=== PATIENT | male | born 1960 | race Caucasian/White ===

== ENCOUNTER → 2016-05-21 | Outpatient (CLI) | payer BC ==
[2016-05-21 17:50] LABS: Uric Acid 7.2 mg/dL (3.5-8.5)
[2016-05-21 17:53] LABS: Basophils % (A) 1 %; CH 27.8; CHCM 32.6; Eosinophils # (A) 0.1 k/uL (0-0.7); Eosinophils % (A) 2 %; HCT 43.4 % (39.0-53.0); HDW 2.67; HGB 14.3 gm/dL (13.0-17.5); Luc # (Auto) 0.18; Luc % (Auto) 4; Lymphocytes # (A) 1.6 k/uL (1.0-4.8); Lymphocytes % (A) 31 %; MCH 28.2 pg (25.0-35.0); MCV 85.5 fL (80.0-100.0); Mean Platelet Volume 7.6; Monocytes # (A) 0.3 k/uL (0-1.0); Monocytes % (A) 5 %; Neutrophils # (A) 2.9 k/uL (1.3-7.7); Neutrophils % (A) 58 %; RBC 5.08 m/uL (4.30-5.90); RDW 13.6 % (11.5-15.5); Rheumatoid Factor, Qnt <9 IU/mL (<12); WBC 5.1 k/uL (3.8-10.6); WBC (Perox) 5.28
[2016-05-21 19:30] LABS: Erythrocyte Sedimentation Rate 15 mm/hr (0-15)
== END | disposition home or self-care (01) ==
LOC: LABWHC1 16:44
PROVIDERS: ATTEND Podiatrist Foot & Ankle Surgery
DX: M10.9 Gout, unspecified (principal); B99.9 Unspecified infectious disease
CPT/HCPCS: 36415; 84550; 85025; 85652; 86431

== ENCOUNTER → 2016-07-16 | Outpatient (CLI) | payer BC ==
--- NOTE | 2016-07-16 16:54 | CT ---
EXAMINATION TYPE: CT chest w con DATE OF EXAM: 07/16/2016 4:45 PM COMPARISON: CT chest June 13, 2012 HISTORY: Hemoptysis. CT DLP: 860 mGycm. Automated Exposure Control for Dose Reduction was Utilized. TECHNIQUE: CT scan of the thorax is performed following with IV Contrast, patient injected with 100 mL of Omnipaque 300. FINDINGS: LUNGS: Minimal linear scarring anteriorly in the right middle lobe near diaphragm remains present. Th e lungs are otherwise grossly clear, there is no concerning parenchymal mass or nodule identified. There is no pleural effusion or pneumothorax seen. The tracheobronchial tree is patent. Previously v isualized right paraesophageal low dense lesion possible duplication cyst is not seen on current stud y. MEDIASTINUM: There are no new greater than 1 cm hilar or mediastinal lymph nodes. There are prominen t right hilar lymph nodes that are stable, for reference is 1.3 x 1.3 cm nodule on axial image 33. Chakraborty bcarinal lymph node is slightly more prominent measuring 2.0 x 0.8 cm on axial image 28 No pericardia l effusion is seen. OTHER: Small degree of asymmetric left-sided gynecomastia on axial image 23 is stable. Liver is hypod ense consistent with fatty infiltration relative to spleen. There is stable lipid rich 2 cm left adre nal adenoma Image 62. IMPRESSION: No new mass or adenopathy is seen . No significant finding is identified to account for p atcharles's symptoms of hemoptysis.
== END | disposition home or self-care (01) ==
LOC: RADCTMAIN 16:20
PROVIDERS: ATTEND Internal Medicine Hematology & Oncology
DX: R04.2 Hemoptysis (principal)
CPT/HCPCS: 71260; Q9967

== ENCOUNTER 2016-07-30 11:31 | Day surgery (SDC) | payer BC ==
[2016-07-29 14:28] VITALS: BMI 45.9
[~2016-07-30 11:31] MED LIST: ALBUTEROL NEB (CONC) 2.5 MG/0.5 ML INHALATION ONE; ATROPINE SULFATE 0.4 MG/ML 1 ML VIAL IM ONE; LACTATED RINGERS 1,000 ML IV ONE; LACTATED RINGERS 1,000 ML IV SCH; LIDOCAINE 2% (PF) 20 MG/ML 10ML INHALATION ONE; Pre Op ABX Message 1 EACH MISC MISCELLANE ONE
[2016-07-30 12:01] VITALS: TEMP 97.7
[2016-07-30] MEDS ORDERED: PROPOFOL 10 MG/ML 20 ML VIAL IV ONE (12:33)
[2016-07-30 13:24] VITALS: RESP 18
[2016-07-30] MEDS ORDERED: LIDOCAINE 2% (PF) 20 MG/ML 2 ML VIAL INHALATION ONE (13:35)
[2016-07-30 14:27] VITALS: BP 111/62; PULSE 65
[2016-07-30 18:25] LABS: RBC, Body Fluid 221 /uL
--- NOTE | 2016-07-31 07:37 | PCN ---
DATE OF PROCEDURE: PROCEDURE: Bronchoscopy, airway examination, therapeutic lavage, and BAL. PREOPERATIVE DIAGNOSIS: Hemoptysis. POSTOPERATIVE DIAGNOSES: 1. Hemoptysis. 2. Bronchitis. 3. Vocal cord candidiasis. There was informed consent. There was universal timeout. Quique Gillespie CRNA provided conscious sedation along with anesthesia. The procedure was done by myself and Dr. Reyes. The [employer] SERVICER provided unconscious sedation with general anesthesia. There was informed consent. The patient's procedure took place in Room #1. After the patient was adequately sedated and being fully monitored, the bronchoscope was inserted through the right nostril. It passed through the right nasopharynx into the oropharynx. The hypopharynx was identified. There was obvious yeast noted on the vocal cords, particularly the right cord. Otherwise, the hypopharyngeal structures, including anterior commissure, true cords, false cords, arytenoids, piriform sinuses, right and left vallecula and epiglottis all appear normal. After topicalization, the bronchoscope was pushed through the glottic opening into the trachea. Trachea appeared relatively normal. There were thick secretions noted in the mid to distal trachea, some of which were saddling the tracheal tigre. They were suctioned. The right and left mainstem were topicalized. The right upper lobe and its 3 segments, the right middle lobe and its 2 segments, the right lower lobe and its 5 segments, the left upper lobe proper and its 2 segments, the lingula and its 2 segments, and the left lower lobe and its 4 segments all had similar findings of diffuse bronchitis, with hyperemia and erythematous airways. There were thick secretions noted throughout. There was no active bleeding. There was no dominant mass. There is obvious moderate bronchitis. Next, the bronchoscope was wedged into the right middle lobe. BAL took place. The patient tolerated the procedure well. Additional secretions were removed, they were suctioned with saline. The patient tolerated the procedure well and the bronchoscope was withdrawn. The specimen will be sent to laboratory for analysis.
== END 2016-07-30 14:15 | disposition home or self-care (01) ==
LOC: ORWHC2ENDO 11:31
PROVIDERS: ATTEND Internal Medicine Critical Care Medicine
DX: R04.2 Hemoptysis (principal); J40 Bronchitis, not specified as acute or chronic; B37.89 Other sites of candidiasis; J44.9 Chronic obstructive pulmonary disease, unspecified; R49.0 Dysphonia; I10 Essential (primary) hypertension; Z79.891 Long term (current) use of opiate analgesic; Z79.51 Long term (current) use of inhaled steroids; Z79.52 Long term (current) use of systemic steroids; Z79.1 Long term (current) use of non-steroidal anti-inflammatories (NSAID); Z79.899 Other long term (current) drug therapy; Z87.891 Personal history of nicotine dependence; Z80.1 Family history of malignant neoplasm of trachea, bronchus and lung
CPT/HCPCS: 94640; 87798 ×4; 87496; 87498; 87529 ×2; 88108; 88305; 89050; 87252; 87502 ×2; 87070; 87205; 87116; 87102; 87206; 31624; J0461; J2001 ×2; J2704

== ENCOUNTER → 2016-08-05 | Outpatient (CLI) | payer BC ==
--- NOTE | 2016-08-05 15:17 | US ---
EXAMINATION TYPE: US venous doppler duplex LE BI DATE OF EXAM: 08/05/2016 1:31 PM COMPARISON: NONE CLINICAL HISTORY: I83.90 ASYMPTOMATIC VEINS, R60.0. Bilateral leg pain and edema. No hx of blood thi nners or DVT SIDE PERFORMED: Bilateral TECHNIQUE: The lower extremity deep venous system is examined utilizing real time linear array sonog duran with graded compression, doppler sonography and color-flow sonography. VESSELS IMAGED: External Iliac Vein (EIV) Common Femoral Vein Deep Femoral Vein Greater Saphenous Vein * Femoral Vein Popliteal Vein Small Saphenous Vein * Proximal Calf Veins (* superficial vessels) Grayscale, color doppler, spectral doppler imaging performed of the deep veins of the lower extremiti es. There is normal flow, compressibility, vascular waveforms bilaterally. Right Leg: Negative for DVT Left Leg: Negative for DVT IMPRESSION: No evidence for DVT at this time.
== END | disposition home or self-care (01) ==
LOC: RADUSWWP 12:44
PROVIDERS: ATTEND Family Medicine
DX: I83.90 Asymptomatic varicose veins of unspecified lower extremity (principal); R60.9 Edema, unspecified
CPT/HCPCS: 93970

== ENCOUNTER 2016-08-10 16:47 | Emergency (ER) | payer BC ==
[2016-08-10 17:10] VITALS: PULSE 108; TEMP 99
[2016-08-10] MEDS ORDERED: HYDROmorphone 1 MG/ML 1 ML SYRINGE IM STA (18:52)
--- NOTE | 2016-08-10 18:59 | ED ---
General Adult HPI - General Chief complaint: Recheck/Abnormal Lab/Rx Stated complaint: Withdrawls Time Seen by Provider: 08/10/16 18:36 Source: patient, RN notes reviewed Mode of arrival: wheelchair Limitations: no limitations - History of Present Illness Initial comments: Patient 55-year-old male significant past medical history for chronic back pain , who presents emergency room today with a chief complaint of increased back pain. He does admit that he is currently out of his morphine. He states that he presented been having increased pain so he took extra of his morphine will not given a prescription until this Wednesday. States prescription comes from his family doctor and he did talk to him today advised him come to the emergency room. Patient denies any bowel bladder incontinence retention. Denies any saddle anesthesia. He does admit to pain that radiates down his legs. He has also been seen by vascular surgeon. Denies any other complaints or symptoms at this time. He states symptoms are consistent with his chronic back pain that is more increased due to the fact that he is out of his medications. He states he has not been taking Tylenol or Motrin because he knows it will not help. He states he has been doing Xanax for his symptoms at this time which he does have prescription for. Patient denies any recent fever, chills, shortness of breath, chest pain, back pain, abdominal pain, nausea or vomiting, numbness or tingling , dysuria or hematuria, constipation or diarrhea, headaches or visual changes, or any other complaints. - Related Data Home Medications Medication Instructions Recorded Confirmed Furosemide [Lasix] 20 mg PO DAILY 07/29/16 07/30/16 Ibuprofen [Ibuprofen] 800 mg PO Q8H PRN 07/29/16 07/30/16 Morphine Sulfate [Arymo ER] 60 mg PO TID 07/29/16 07/30/16 Olmesartan/Amlodipin/Hcthiazid 1 each PO DAILY 07/29/16 07/30/16 [Tribenzor 40-10-25 mg Tablet] Previous Rx's Medication Instructions Recorded Baclofen 10 mg PO TID #20 tab 08/10/16 cloNIDine HCL [Catapres] 0.1 mg PO BID #6 tab 08/10/16 Allergies Allergy/AdvReac Type Severity Reaction Status Date / Time No Known Allergies Allergy Verified 08/10/16 17:11 Review of Systems ROS Statement: Those systems with pertinent positive or pertinent negative responses have been documented in the HPI. ROS Other: All systems not noted in ROS Statement are negative. Past Medical History Past Medical History: COPD, Hypertension Additional Past Medical History / Comment(s): BACK PAIN. EDEMA IN BLE. HEMOPTYSIS, SHORTNESS OF BREATH. History of Any Multi-Drug Resistant Organisms: None Reported Past Surgical History: Orthopedic Surgery Additional Past Surgical History / Comment(s): LT LEG INJURY REPAIR. COLONOSCOPY. Past Anesthesia/Blood Transfusion Reactions: No Reported Reaction Past Psychological History: No Psychological Hx Reported Smoking Status: Former smoker Past Alcohol Use History: None Reported Additional Past Alcohol Use History / Comment(s): SMOKED 30 YEARS, 2PPD, QUIT 2008 Past Drug Use History: None Reported Additional Drug Use History / Comment(s): DAILY USE - Past Family History Mother Family Medical History: Cancer Father Family Medical History: Cancer General Exam - General Exam Comments Initial Comments: General: The patient is awake and alert, in no distress, and does not appear acutely ill. Eye: Pupils are equal, round and reactive to light, extra-ocular movements are intact. No nystagmus. There is normal conjunctiva bilaterally. No signs of icterus. Ears, nose, mouth and throat: There are moist mucous membranes and no oral lesions. Neck: The neck is supple, there is no tenderness or JVD. Cardiovascular: There is a regular rate and rhythm. No murmur, rub or gallop is appreciated. Respiratory: Lungs are clear to auscultation, respirations are non-labored, breath sounds are equal. No wheezes, stridor, rales, or rhonchi. Musculoskeletal: Normal ROM. Strength 5/5. Sensation intact. Pulses equal bilaterally 2+. Neurological: A&O x 3. CN II-XII intact, There are no obvious motor or sensory deficits. Coordination appears grossly intact. Speech is normal. Skin: Skin is warm and dry and no rashes or lesions are noted. Psychiatric: Cooperative, appropriate mood & affect, normal judgment. Limitations: no limitations Course Vital Signs 08/10/16 17:07 Temperature 99.0 F Pulse Rate 108 H Respiratory 20 Rate Blood Pressure 127/79 O2 Sat by Pulse 98 Oximetry Medical Decision Making - Medical Decision Making Patient advised that we cannot fill his chronic pain medication of morphine here in emergency room. Offered patient a pain shot. Offered him medications for any withdrawals which we will give him a prescription for clonidine along with baclofen for his symptoms. Patient advised to follow-up with family doctor tomorrow or return here for any other concerns. He states understanding and is in agreement. Disposition Clinical Impression: Chronic back pain Disposition: HOME SELF-CARE Condition: Stable Instructions: Chronic Back Pain (ED) Additional Instructions: Please use medication as discussed. Please follow-up with family doctor in the next 2 days of symptoms have not improved. Please return to emergency room if the symptoms increase or worsen or for any other concerns. Prescriptions: Baclofen 10 mg PO TID #20 tab cloNIDine HCL [Catapres] 0.1 mg PO BID #6 tab Referrals: Harry Crooks DO [Primary Care Provider] - 1-2 days Time of Disposition: 18:57
[2016-08-10 19:12] VITALS: BP 148/73; RESP 16
== END 2016-08-10 19:23 | disposition home or self-care (01) ==
LOC: EC 16:47
DX: G89.29 Other chronic pain (principal); M54.9 Dorsalgia, unspecified; I10 Essential (primary) hypertension; Z79.891 Long term (current) use of opiate analgesic; Z79.899 Other long term (current) drug therapy; Z87.891 Personal history of nicotine dependence
CPT/HCPCS: 99283; 96372; J1170

== ENCOUNTER 2016-10-27 09:10 | Inpatient (IN) | payer BC ==
[2016-10-27] MEDS ORDERED: IPRATROPIUM-ALBUTEROL 3 ML NEB INHALATION STA (09:39)
[2016-10-27] MEDS ORDERED: SODIUM CHLORIDE 0.9% 1,000 ML IV STA (09:39)
--- NOTE | 2016-10-27 09:45 | ED ---
Chest Pain HPI - General Chief Complaint: Chest Pain Stated Complaint: Chest Pain Time Seen by Provider: 10/27/16 09:25 Source: patient, RN notes reviewed Mode of arrival: ambulatory Limitations: no limitations - History of Present Illness Initial Comments: This is a 56-year-old male with a benign history other than being a former smoker who quit in 2008 who complains the onset of shortness of breath 5 days ago and chest tightness is started today. He also some tightness in his legs. He has exertional dyspnea no fevers chills or sweats he does use a rescue inhaler but it did not help today. He has peripheral edema which seems to be getting worse in both legs worse when the left than the right. No cough or phlegm production. No history of heart disease that he knows of. He states she 's never been diagnosed with COPD asthma or emphysema but again he does use rescue inhalers. MD Complaint: chest pain, other - Related Data Home Medications Medication Instructions Recorded Confirmed Furosemide [Lasix] 20 mg PO DAILY 07/29/16 10/27/16 Olmesartan/Amlodipin/Hcthiazid 1 tab PO DAILY 07/29/16 10/27/16 [Tribenzor 40-10-25 mg Tablet] Gabapentin [Neurontin] 400 mg PO TID PRN 08/10/16 10/27/16 Aspirin EC [Ecotrin Low Dose] 81 mg PO DAILY 10/27/16 10/27/16 Budesonide-Formot 160-4.5 Mcg 2 puff INHALATION RT-DAILY 10/27/16 10/27/16 [Symbicort 160-4.5 Mcg Inhaler] Ipratropium/Albuterol Sulfate 1 puff INHALATION QID PRN 10/27/16 10/27/16 [Combivent Respimat Inhaler] Morphine Sulfate Ir [Msir] 15 mg PO TID PRN 10/27/16 10/27/16 Allergies Allergy/AdvReac Type Severity Reaction Status Date / Time tramadol AdvReac Chest Pain Verified 10/27/16 09:37 Review of Systems ROS Statement: Those systems with pertinent positive or pertinent negative responses have been documented in the HPI. ROS Other: All systems not noted in ROS Statement are negative. EKG Findings - EKG Results: EKG: interpreted by TIM, sinus rhythm (Sinus tachycardia with a rate of 110 MT interval 150 to QRS 84 QT since QTC of 366/495 the posterior fascicular block nonspecific ST configuration.) Past Medical History Past Medical History: Chest Pain / Angina, COPD, Hypertension Additional Past Medical History / Comment(s): BACK PAIN. EDEMA IN BLE. HEMOPTYSIS, SHORTNESS OF BREATH. History of Any Multi-Drug Resistant Organisms: None Reported Past Surgical History: Adenoidectomy, Orthopedic Surgery, Tonsillectomy Additional Past Surgical History / Comment(s): LT LEG INJURY REPAIR. COLONOSCOPY. Past Anesthesia/Blood Transfusion Reactions: No Reported Reaction Past Psychological History: Anxiety, Depression Smoking Status: Former smoker Past Alcohol Use History: Rare Past Drug Use History: None Reported - Past Family History Mother Family Medical History: Cancer Father Family Medical History: Cancer General Exam - General Exam Comments Initial Comments: This is a well-developed well-nourished awake alert oriented 3 male Limitations: no limitations General appearance: alert, anxious Head exam: Present: atraumatic, normocephalic, normal inspection Eye exam: Present: normal appearance, PERRL, EOMI. Absent: scleral icterus, conjunctival injection, periorbital swelling ENT exam: Present: mucous membranes dry Neck exam: Present: normal inspection. Absent: tenderness, meningismus, lymphadenopathy Respiratory exam: Present: wheezes, decreased breath sounds Cardiovascular Exam: Present: normal rhythm, tachycardia GI/Abdominal exam: Present: soft, normal bowel sounds. Absent: distended, tenderness, guarding, rebound, rigid Extremities exam: Present: normal capillary refill, pedal edema (Pila edema to the knees) Back exam: Present: normal inspection Neurological exam: Present: alert, oriented X3, CN II-XII intact Psychiatric exam: Present: normal affect, normal mood Skin exam: Present: warm, dry, intact, normal color. Absent: rash Course Vital Signs 10/27/16 10/27/16 10/27/16 09:13 09:49 10:06 Temperature 101.2 F H Pulse Rate 117 H 107 H 107 H Respiratory 18 16 14 Rate Blood Pressure 123/84 O2 Sat by Pulse 93 L Oximetry 10/27/16 10/27/16 10:16 12:40 Temperature Pulse Rate 110 H 107 H Respiratory 18 24 Rate Blood Pressure 109/66 115/64 O2 Sat by Pulse 93 L 94 L Oximetry - Reevaluation(s) Reevaluation #1: 08/29/17 13:21 I did discuss the findings with the patient and family and several occasions. Patient CAT scan a saddle pulmonary embolism was noted. Reevaluation #2: 10/27/16 13:21 I did discuss the case with Dr. Zepeda. He did come to the emergency department see the patient did discuss case with Dr. Kee who did come to the emergency department to see the patient. At this time is felt the patient is not a candidate for TPA and will be admitted to ICU on high-dose heparin. Critical Care Time Critical Care Time: Yes Critical Care Time: 45 minutes of critical care time which includes initial presentation with history physical labs x-rays reevaluation the patient on several occasions discussion with physicians including radiology Dr Mariscal, Dr. Zepeda in Dr. Kee. Disposition Clinical Impression: Pulmonary embolism on left, Pulmonary embolism on right, COPD (chronic obstructive pulmonary disease), Febrile illness, acute, Elevated troponin Disposition: ADMITTED IP TO THIS [facility] Condition: Serious Referrals: Harry Crooks DO [Primary Care Provider] - 1-2 days
[2016-10-27 10:28] LABS: Basophils # (A) 0.1 k/uL (0-0.2); Basophils % (A) 1 %; CH 30.1; CHCM 34.2; Eosinophils # (A) 0.1 k/uL (0-0.7); Eosinophils % (A) 1 %; HCT 46.4 % (39.0-53.0); HDW 2.87; HGB 15.2 gm/dL (13.0-17.5); Luc # (Auto) 0.39; Luc % (Auto) 3; Lymphocytes # (A) 2.9 k/uL (1.0-4.8); Lymphocytes % (A) 24 %; MCH 28.9 pg (25.0-35.0); MCHC 32.7 g/dL (31.0-37.0); MCV 88.4 fL (80.0-100.0); Mean Platelet Volume 8.9; Monocytes # (A) 0.5 k/uL (0-1.0); Monocytes % (A) 4 %; Neutrophils # (A) 8.5 k/uL (1.3-7.7); Neutrophils % (A) 68 %; RBC 5.25 m/uL (4.30-5.90); RDW 15.8 % (11.5-15.5); WBC 12.4 k/uL (3.8-10.6); WBC (Perox) 11.72
--- NOTE | 2016-10-27 10:35 | XR ---
EXAMINATION TYPE: XR chest 2V DATE OF EXAM: 10/27/2016 HISTORY: difficulty breathing. REFERENCE: Previous study dated 05/21/2012. FINDINGS: There is a mild dextroscoliosis. 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 The lungs are clear. Pleural space are clear. Heart size is within normal limits. IMPRESSION: NO ACUTE INTRATHORACIC ABNORMALITY.
[2016-10-27 10:38] LABS: ALT 28 U/L (21-72); AST 26 U/L (17-59); Alkaline Phosphatase 97 U/L (38-126); Anion Gap 10 mmol/L; Blood Urea Nitrogen 24 mg/dL (9-20); Calcium 9.2 mg/dL (8.4-10.2); Carbon Dioxide 23 mmol/L (22-30); Chloride 109 mmol/L (98-107); Glucose 107 mg/dL (74-99); Magnesium 2.2 mg/dL (1.6-2.3); Non-African American GFR(MDRD) 53 (>60 ml/min/1.73 sqM); Potassium 4.5 mmol/L (3.5-5.1); Sodium 142 mmol/L (137-145); Total Bilirubin 0.7 mg/dL (0.2-1.3); Total Protein 7.1 g/dL (6.3-8.2)
[2016-10-27 10:45] LABS: Partial Thromboplastin Time 23.5 sec (22.0-30.0); Prothrombin Time 10.5 sec (9.0-12.0)
[2016-10-27] MEDS ORDERED: RX INFO: IV CONTRAST WAS GIVEN 1 EACH MISC MISCELLANE PRN (10:51)
[2016-10-27 11:08] LABS: Creatine Kinase MB 1.2 ng/mL (0.0-2.4)
[2016-10-27 11:11] LABS: Troponin I 0.149 ng/mL (0.000-0.034)
[2016-10-27] MEDS ORDERED: HEPARIN SODIUM,PORCINE 5,000 UNIT/ML 1 ML VIAL IV STA (11:34)
--- NOTE | 2016-10-27 11:48 | CT ---
EXAMINATION TYPE: CT angio chest DATE OF EXAM: 10/27/2016 COMPARISON: 07/16/2016 HISTORY: chest pain, sob, bilateral lower limb edema, hx of htn and asthma. CT DLP: 768.5 mGycm. Automated Exposure Control for Dose Reduction was Utilized. CONTRAST: CTA scan of the thorax is performed with IV Contrast, patient injected with 90 mL of Visipaque 320, p ulmonary embolism protocol. MIP Images are created on CT scanner and reviewed. FINDINGS: LUNGS: Scattered areas of subsegmental atelectasis are seen and patchy opacities that may represent e jayme pulmonary infarcts although no focal consolidation is present. There is no pleural effusion or pneumothorax seen. The tracheobronchial tree is patent. MEDIASTINUM: Large saddle pulmonary embolus is seen bridging the right and left main pulmonary arteri es, nonocclusive at these levels, however nearly occlusive segmental and subsegmental emboli with mul tiple occlusive segmental emboli are seen to all lobes of the right and left lung. There is associate d pulmonary arterial enlargement measuring up to 3.5 cm as well as bowing of the interventricular sep tavia to the left, indicative of right heart strain. Reflux of contrast is seen into the inferior vena cava but not into the hepatic veins. Mild adenopathy is seen within the mediastinum with subcarinal lymph node measuring 1.2 cm and lymph node within the prevascular space measuring 0.9 cm. Adenopathy within the right hilum is also seen me asuring 1.2 cm in short axis, likely reactive. OTHER: Low-density adrenal gland nodule on the left measures approximately 1.9 cm and relates to ei er a myelolipoma or lipid rich adenoma. Sclerotic lesion is present within the left glenoid, unchange d from the prior and of undetermined etiology. Another sclerotic focus is seen within the second post erior right rib, also unchanged from the prior of undetermined etiology. Degenerative changes are mian reciated of the thoracic spine. Findings communicated to the ER physician Dr. Mcdonald by Dr. Mariscal at 1132 on 10/27/2016. IMPRESSION: 1. Large saddle embolus, nonocclusive centrally, but occlusive within many subsegmental pulmonary emb lynda. Emboli extend bilaterally into each segmental artery and many subsegmental arteries to each lobe . There is evidence of secondary right heart strain. 2. Sclerotic foci within the right second rib and left glenoid, of undetermined etiology and incomple tely characterized. 3. Mediastinal adenopathy, likely reactive. 4. Scattered areas of groundglass opacity which may represent atelectasis and/or early pulmonary infa rcts. 5. Benign left adrenal gland lesion either representing a lipid rich adenoma or myelolipoma.
[2016-10-27] MEDS: HEPARIN SODIUM,PORCINE/D5W PMX 25,000 UNIT in DEXTROSE/WATER 1 500ML.BAG IV SCH ×2 (12:36→21:55)
--- NOTE | 2016-10-27 13:00 | P.CNPUL ---
History of Present Illness Consult date: 10/27/16 Reason for consult: pulmonary embolism History of present illness: A very pleasant 56-year-old obese male patient with known history of chronic degenerative arthritis involving the back and large joints/hips/knees was been bleeding essentially incidentally lifestyle. The patient also has a positive family history for pulmonary embolism as his father was diagnosed having PE and he also had an underlying multiple myeloma. The patient was in a good state of health in approximately 5 days ago when he acutely started getting short of breath and he progressively got worse to the point where he was getting short of breath with limited amount of activity and sometimes even at rest. No hemoptysis. No pleurisy. No chest pain.No calf pain. He had swelling in lower extremities bilaterally. He was concerned and for that reason he came into the hospital with a CT angios the chest was done and it showed bilateral pulmonary embolism And the CAT scan showed a saddle embolism nonocclusive centrally but there was many subsegmental pulmonary emboli bilaterally and segmental emboli each lobe of the lung. There was evidence of any active mediastinal lymphadenopathy. Scattered areas of groundglass opacity within the lung/atelectasis/early infarct. There was a right ventricular strain pattern on the CT angios the chest and for that reason a stat echocardiogram was done that showed a preserved LV function with a PA pressures in the mid 40s and dilation of the right ventricle. The patient was started on IV heparin. He remains hemodynamically stable. In fact his systolic blood pressures in the 140s. He is slightly tachycardic and he is in sinus tachycardia with a heart rate of 105. He is on 42 of oxygen nasal cannula and his pulse is around 95%. Denies having any recent surgery. No orthopedic surgery. No trauma. No malignancy. No personal history of DVT or pulmonary embolism. No change in mental status. No syncope. He has clinical features of obstructive sleep apnea although this has not been diagnosed officially. Review of Systems Constitutional: Reports fatigue Eyes: right decreased vision, denies blurred vision, denies bulging eye Ears: right: tinnitus, deny: decreased hearing, ear discharge, earache Ears, nose, mouth and throat: Denies headache, Denies sore throat Cardiovascular: Reports decreased exercise tolerance, Reports dyspnea on exertion, Reports leg edema, Reports rapid heart beat, Reports shortness of breath Respiratory: Reports dyspnea, Reports snoring Gastrointestinal: Denies abdominal pain, Denies diarrhea, Denies nausea, Denies vomiting Genitourinary: Reports as per HPI Musculoskeletal: Reports gait dysfunction, Reports low back pain, Denies myalgias Musculoskeletal: bilateral: ankle swelling, absent: ankle pain, ankle stiffness Integumentary: Denies pruritus, Denies rash Neurological: Denies numbness, Denies weakness Psychiatric: Denies anxiety, Denies depression Endocrine: Denies fatigue, Denies weight change Past Medical History Past Medical History: Chest Pain / Angina, COPD, Hypertension Additional Past Medical History / Comment(s): Obesity, hypertension, lower extremities edema, bronchial asthma/COPD, chronic back pain, degenerative arthritis involving the joints and spine History of Any Multi-Drug Resistant Organisms: None Reported Past Surgical History: Adenoidectomy, Orthopedic Surgery, Tonsillectomy Additional Past Surgical History / Comment(s): LT LEG INJURY REPAIR. COLONOSCOPY. Past Anesthesia/Blood Transfusion Reactions: No Reported Reaction Past Psychological History: Anxiety, Depression Smoking Status: Former smoker Past Alcohol Use History: Rare Past Drug Use History: None Reported - Past Family History Mother Family Medical History: Cancer Father Family Medical History: Cancer Medications and Allergies Home Medications Medication Instructions Recorded Confirmed Type Furosemide [Lasix] 20 mg PO DAILY 07/29/16 10/27/16 History Olmesartan/Amlodipin/Hcthiazid 1 tab PO DAILY 07/29/16 10/27/16 History [Tribenzor 40-10-25 mg Tablet] Gabapentin [Neurontin] 400 mg PO TID PRN 08/10/16 10/27/16 History Aspirin EC [Ecotrin Low Dose] 81 mg PO DAILY 10/27/16 10/27/16 History Budesonide-Formot 160-4.5 Mcg 2 puff INHALATION RT-DAILY 10/27/16 10/27/16 History [Symbicort 160-4.5 Mcg Inhaler] Ipratropium/Albuterol Sulfate 1 puff INHALATION QID PRN 10/27/16 10/27/16 History [Combivent Respimat Inhaler] Morphine Sulfate Ir [Msir] 15 mg PO TID PRN 10/27/16 10/27/16 History Allergies Allergy/AdvReac Type Severity Reaction Status Date / Time tramadol AdvReac Chest Pain Verified 10/27/16 09:37 Physical Exam Vitals: Vital Signs Temp Pulse Resp BP Pulse Ox 10/27/16 12:40 107 H 24 115/64 94 L 10/27/16 10:16 110 H 18 109/66 93 L 10/27/16 10:06 107 H 14 10/27/16 09:49 107 H 16 10/27/16 09:13 101.2 F H 117 H 18 123/84 93 L Intake and Output 10/26/16 10/27/16 10/27/16 22:59 06:59 14:59 Other: Weight 136.078 kg Patient Weight 10/28/16 06:59 Weight 136.078 kg Obese, comfortable likely distress.Head exam was generally normal. There was no scleral icterus or corneal arcus. Mucous membranes were moist. Neck is short and supple and the patient has significant crowding of the posterior oropharynx with a Mallampati class IV. No goiter or neck masses. Lungs sounds are diminished in lung bases otherwise clear. Breath sounds are equal and symmetrical bilaterally.Cardiac exam revealed the PMI to be normally situated and sized. The rhythm was regular and no extrasystoles were noted during several minutes of auscultation. The first and second heart sounds were normal and physiologic splitting of the second heart sound was noted. There were no murmurs, rubs, clicks, or gallops. Abdomen soft nontender. No direct tenderness rebound tensile guarding. Extremities reveal +1 edema and there is no cyanosis or clubbing. No calf tenderness. No open wounds or sores. Neurologically, the patient is awake and alert. Results - Laboratory Findings CBC and BMP: 10/27/16 09:30 10/27/16 09:30 PT/INR, D-dimer PT 10.5 sec (9.0-12.0) 10/27/16 09:30 INR 1.0 (<1.2) 10/27/16 09:30 D-Dimer 7.50 mg/L FEU (<0.60) H 10/27/16 09:30 Abnormal lab findings: Abnormal Labs 10/27/16 10/27/16 10/27/16 09:30 09:30 09:30 WBC 12.4 H RDW 15.8 H Neutrophils # 8.5 H D-Dimer Chloride 109 H BUN 24 H Creatinine 1.37 H Glucose 107 H Troponin I 0.149 H* 10/27/16 09:30 WBC RDW Neutrophils # D-Dimer 7.50 H Chloride BUN Creatinine Glucose Troponin I - Diagnostic Findings CT scan - chest: image reviewed Assessment and Plan Plan: Assessment 1 acute bilateral pulmonary embolism. The patient has unprovoked pulmonary embolism and his main risk factor is positive family history and sedentary lifestyle. The patient had a CT angios the chest that showed segmental and subsegmental pulmonary artery occlusions bilaterally and there was a nonocclusive saddle embolus. There is evidence of moderate degree of pulmonary hypertension. PA pressures based on echocardiogram the mid 40s. Nevertheless, the patient is on oxygen at 4 L and is oxygenating well for the time being. No significant tachycardia. No hemodynamic instability and his blood pressure is well maintained. 2 obesity 3 sedentary lifestyle 4 positive family history of pulmonary embolism 5 hypertension 6 COPD/bronchial asthma 7 degenerative arthritis with chronic back pain and difficulty with mobility and gait 8 renal insufficiency, possibly acute kidney injury with a creatinine of 1.3, watch for contrast nephropathy Plan I do not see the need for thrombolytics whether the systemic or local/ intracatheter knowing that the patient is hemodynamic is stable and the patient is able to handle the pulmonary embolism without any major hemodynamic instability. He is actually taking well at 4 L. Blood pressure is well maintained. We'll obtain Doppler of the lower extremities. We'll proceed with IV heparin and within next 2448 hrs. the patient will be transitioned to oral antibiotic coagulation. He will need long-term if not lifelong anticoagulation based on the above-mentioned events. Meanwhile, we'll monitor renal function watch for any contrast nephropathy. The patient will to the intensive care unit for further monitoring. Further recommendations are to follow based on his progress. Discussed the case with the family. Discussed the case with the . The echocardiogram was reviewed with the aircraft structural fitter at the bedside.
[2016-10-27] MEDS ORDERED: ACETAMINOPHEN TAB 325 MG TAB PO PRN (13:24)
[2016-10-27] MEDS ORDERED: NALOXONE 0.4 MG/ML 1 ML VIAL IV PRN (13:24)
[2016-10-27] MEDS ORDERED: MORPHINE SULFATE 4 MG/ML SYRINGE IVP STA (14:06)
--- NOTE | 2016-10-27 14:21 | P.HPIM ---
History of Present Illness H&P Date: 10/27/16 Chief Complaint: bilateral saddle pulmonary embolism This is a 56-year-old male one of Dr. 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 Crooks's office because of increased chest pain associated with increased shortness breath walking a few steps on patient had an EKG Dr. Crooks's office that showed right ventricular strain pattern was sent to the ER for evaluation his d-dimer came back elevated he ended up going for computed tomography scan of the chest with contrast that was positive for bilateral saddle pulmonary emboli, he was seen in consultation by Dr. Kee from critical care and pulmonary medicine, he had an Echocardiogram and EKG at the bedside there is significant right ventricular strain pattern on EKG however the echocardiogram was still pending at the time of dictation, patient stated that he was in his usual state of health about last when he was getting out and walking around loaded and he suddenly developed to have a severe chest pain associated with pleurisy not able to walk a few steps he did not do anything about it he ended up going back home he stated lipase without any relief patient apparently was seen recently by Dr. Thompson for his COPD/asthma he was placed on Symbicort 160/4.5 g 2 puffs inhalation twice every day along with Combivent Respimat 2 puffs inhal QID and patient when he did use it recently he felt a lot worse he ended up coming to the hospital as I stated above and he was seen in the ER and he was admitted to the intensive care unit for evaluation and treatment. Of notice patient was seen by hematology oncology in June 2016 and he ended up going for a computed tomography scan of the chest that was negative for acute of normalities because of hemoptysis that he developed. Review of Systems Constitutional: Reports chronic pain, Reports weight gain, Denies anorexia, Denies chronic headaches, Denies fever, Denies malaise, Denies night sweats, Denies weakness, Denies weight loss Eyes: denies blurred vision, denies bulging eye, denies decreased vision Ears: deny: decreased hearing Ears, nose, mouth and throat: Denies dysphagia, Denies neck lump, Denies swelling in throat, Denies sore throat Cardiovascular: Reports chest pain, Reports decreased exercise tolerance, Reports dyspnea on exertion, Reports high blood pressure, Reports lightheadedness, Reports rapid heart beat, Reports shortness of breath, Denies irregular heart beat, Denies palpitations, Denies paroxysmal nocturnal dyspnea, Denies phlebitis, Denies syncope Respiratory: Reports dyspnea, Reports pain on inspiration, Reports sleep apnea, Denies congestion, Denies cough, Denies cough with sputum, Denies pain, Denies snoring, Denies wheezing Gastrointestinal: Reports constipation, Denies abdominal pain, Denies bloating, Denies BRBPR, Denies dyspepsia, Denies hematemesis, Denies melena, Denies nausea , Denies vomiting Genitourinary: Reports nocturia, Denies dysuria Musculoskeletal: Reports gait dysfunction, Reports low back pain, Reports shooting leg pain, Denies myalgias Musculoskeletal: left: foot stiffness, foot swelling, bilateral: ankle swelling , absent: ankle pain, ankle stiffness, elbow pain, elbow stiffness, elbow swelling, foot pain, hand pain, hand stiffness, hand swelling, hip pain, hip stiffness, hip swelling, knee pain, knee stiffness, knee swelling, shoulder pain , shoulder stiffness, shoulder swelling, wrist pain, wrist stiffness, wrist swelling Integumentary: Denies pruritus, Denies rash Neurological: Denies numbness, Denies weakness Psychiatric: Denies anxiety, Denies depression Endocrine: Denies fatigue, Denies weight change Past Medical History Past Medical History: Chest Pain / Angina, COPD, Hyperlipidemia, Hypertension, Musculoskeletal Disorder, Osteoarthritis (OA), Sleep Apnea/CPAP/BIPAP Additional Past Medical History / Comment(s): Hypertension and hypertensive cardiovascular disease, hyperlipidemia, obesity with obstructive sleep apnea Ho chronic pain syndrome, degenerative disc disease of the lumbar spine, elevated liver function tests, COPD, asthma, hemoptysis back in June 2016, bilateral lower extremity edema especially the left lower extremity. History of Any Multi-Drug Resistant Organisms: None Reported Past Surgical History: Adenoidectomy, Orthopedic Surgery, Tonsillectomy Additional Past Surgical History / Comment(s): LT LEG INJURY REPAIR. COLONOSCOPY. 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, he drinks occasionally.) Past Alcohol Use History: Rare Past Drug Use History: None Reported - Past Family History Mother Family Medical History: Cancer (mother at age of 75 from lung cancer.) Father Family Medical History: Cancer (father at age of 82 from multiple myeloma, CAD, and obstructive sleep apnea .), Coronary Artery Disease (CAD), Sleep Apnea/ CPAP/BIPAP Brother(s) Family Medical History: Pulmonary Embolus (patient had 2 brothers one at and the other one was diagnosed with pulmonary embolism) Sister(s) Family Medical History: No Reported History (patient has 3 sisters no major medical problems.) Daughter(s) Family Medical History: No Reported History (patient has 2 daughters no major medical problems.) Son(s) Family Medical History: No Reported History (patient has one son no major medical problems.) Medications and Allergies Home Medications Medication Instructions Recorded Confirmed Type Furosemide [Lasix] 20 mg PO DAILY 07/29/16 10/27/16 History Olmesartan/Amlodipin/Hcthiazid 1 tab PO DAILY 07/29/16 10/27/16 History [Tribenzor 40-10-25 mg Tablet] Gabapentin [Neurontin] 400 mg PO TID PRN 08/10/16 10/27/16 History Aspirin EC [Ecotrin Low Dose] 81 mg PO DAILY 10/27/16 10/27/16 History Budesonide-Formot 160-4.5 Mcg 2 puff INHALATION RT-DAILY 10/27/16 10/27/16 History [Symbicort 160-4.5 Mcg Inhaler] Ipratropium/Albuterol Sulfate 1 puff INHALATION QID PRN 10/27/16 10/27/16 History [Combivent Respimat Inhaler] Morphine Sulfate Ir [Msir] 15 mg PO TID PRN 10/27/16 10/27/16 History Allergies Allergy/AdvReac Type Severity Reaction Status Date / Time tramadol AdvReac Chest Pain Verified 10/27/16 09:37 Physical Exam Vitals: Vital Signs Temp Pulse Resp BP Pulse Ox 10/27/16 12:40 107 H 24 115/64 94 L 10/27/16 10:16 110 H 18 109/66 93 L 10/27/16 10:06 107 H 14 10/27/16 09:49 107 H 16 10/27/16 09:13 101.2 F H 117 H 18 123/84 93 L Intake and Output 10/26/16 10/27/16 10/27/16 22:59 06:59 14:59 Other: Weight 136.078 kg Patient Weight 10/28/16 06:59 Weight 136.078 kg - Constitutional General appearance: mild distress, morbidly obese - EENT Eyes: anicteric sclerae, EOMI, PERRLA, no ptosis, no scleral icterus, normal appearance ENT: NA/AT, normal oropharynx, no thrush, no tonsillar exudates Ears: bilateral: normal - Neck Neck: no lymphadenopathy, normal ROM, no rigidity, no stridor, no thyromegaly Carotids: bilateral: upstroke normal Thyroid: bilateral: normal size - Respiratory Respiratory: bilateral: diminished, negative: dullness, rales, rhonchi, wheezing - Cardiovascular Rhythm: regular Heart sounds: normal: S1, S2 Abnormal Heart Sounds: systolic murmur, no rub, S3 Gallop, no S4 Gallop, no click - Gastrointestinal General gastrointestinal: normal bowel sounds, soft, no splenomegaly, no tenderness, no umbilical hernia, no ventral hernia - Integumentary Integumentary: normal, normal turgor - Neurologic Neurologic: CNII-XII intact - Musculoskeletal Musculoskeletal: generalized weakness, strength equal bilaterally - Psychiatric Psychiatric: A&O x's 3, appropriate affect, intact judgment & insight Results CBC & Chem 7: 10/28/16 04:12 10/28/16 04:12 Labs: Abnormal Lab Results - Last 24 Hours (Table) 10/27/16 10/27/16 10/27/16 Range/Units 09:30 09:30 09:30 WBC 12.4 H (3.8-10.6) k/uL RDW 15.8 H (11.5-15.5) % Neutrophils # 8.5 H (1.3-7.7) k/uL D-Dimer (<0.60) mg/L FEU Chloride 109 H (98-107) mmol/L BUN 24 H (9-20) mg/dL Creatinine 1.37 H (0.66-1.25) mg/dL Glucose 107 H (74-99) mg/dL Troponin I 0.149 H* (0.000-0.034) ng/mL 10/27/16 Range/Units 09:30 WBC (3.8-10.6) k/uL RDW (11.5-15.5) % Neutrophils # (1.3-7.7) k/uL D-Dimer 7.50 H (<0.60) mg/L FEU Chloride (98-107) mmol/L BUN (9-20) mg/dL Creatinine (0.66-1.25) mg/dL Glucose (74-99) mg/dL Troponin I (0.000-0.034) ng/mL Thrombosis Risk Factor Assmnt - DVT/VTE Prophylaxis DVT/VTE Prophylaxis: Pharmacologic Prophylaxis ordered, Mechanical Prophylaxis ordered Assessment and Plan Plan: Assessment and plan: 1. Bilateral saddle pulmonary emboli. Admit patient to the intensive care unit , 12-lead EKG showed right ventricular strain pattern, Echocardiogram was done at the bedside, patient was seen in consultation by Dr. Kee from pulmonary and critical care medicine it was felt that the patient did not need to be on t- PA at this point in time since he was hemodynamically stable. patient was started on heparin drip per protocol, we will admit the patient to intensive care unit, we will check venous Doppler of both lower extremities as the patient does appear to have significant swelling in the left lower extremity. 2. Hypertension and hypertensive cardiovascular disease. Continue patient on [place] Enzor/10/25 mg orally once every day. 3. Chronic pain syndrome. Continue patient on MSIR 15 mg orally 3 times every day. 4. 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 Continue patient on gabapentin 400 mg orally 3 times every day. 5. Obesity with obstructive sleep apnea and obesity hypoventilation syndrome. Patient will need to go for a polysomnogram as an outpatient. 6. COPD/asthma. Start the patient on Symbicort 160/4.5 g 2 puff inhalation twice every day, continue DuoNeb 3 mL nebulization 4 times every day, continue oxygen support at 4 L nasal cannula. 7. Elevated liver function test. Thought to be due to fatty filtration of the liver and possible narcotics. 8. Acute kidney injury and top of possible chronic disease stage II. IV fluid resuscitation, monitor the patient CMP, magnesium, phosphorus the next 24 hours , monitor for contrast nephropathy. 9. DVT prophylaxis. Currently on heparin drip. 10. GI prophylaxis. Start the patient on Protonix 40 mg IV push every 24 hours. 11. Patient is full code. 12. Admit to inpatient. Estimate a length of stay 2 midnights.
[2016-10-27] MEDS: SODIUM CHLORIDE 0.9% 1,000 ML IV SCH (14:40)
--- NOTE | 2016-10-27 15:31 | US ---
EXAMINATION TYPE: US venous doppler duplex LE DATE OF EXAM: 10/27/2016 3:18 PM COMPARISON: Previous study dated 08/05/2016. CLINICAL HISTORY: DVT/PE. PE, started Heparin, no hx of DVT or Blood clots. Patient states discomfor t behind left knee. No redness or swelling noted. SIDE PERFORMED: Bilateral TECHNIQUE: The lower extremity deep venous system is examined utilizing real time linear array sonog duran with graded compression, doppler sonography and color-flow sonography. VESSELS IMAGED: External Iliac Vein (EIV) Common Femoral Vein Deep Femoral Vein Greater Saphenous Vein * Femoral Vein Popliteal Vein Small Saphenous Vein * Proximal Calf Veins (* superficial vessels) Right Leg: Appears negative for DVT Left Leg: Appears POSITIVE for DVT in Popliteal vein. Small amount of vascular flow noted in proxim al Popliteal vein. Proximal calf veins not well visualized. No popliteal fossa lesion is identified. IMPRESSION: THIS EXAMINATION IS POSITIVE FOR DVT IN THE LEFT POPLITEAL VEIN.
[2016-10-27 15:37] LABS: Glucose,Whole Blood 120 mg/dL (75-99)
[2016-10-27] MEDS: IPRATROPIUM-ALBUTEROL 3 ML NEB INHALATION SCH ×2 (15:39→20:24)
[2016-10-27] MEDS: MORPHINE SULFATE IR 15 MG TABLET PO PRN (18:41)
[2016-10-27] MEDS: SYMBICORT 160-4.5 MCG INHALER INHALATION SCH (20:25)
[2016-10-27] MEDS: GABAPENTIN 400 MG CAP PO PRN (20:37)
[2016-10-27] MEDS ORDERED: IPRATROPIUM-ALBUTEROL 3 ML NEB INHALATION PRN (20:53)
[2016-10-28] MEDS: SODIUM CHLORIDE 0.9% 1,000 ML IV SCH ×3 (00:04→17:47)
[2016-10-28 04:52] LABS: Basophils % (A) 0 %; CH 29.4; CHCM 32.8; Eosinophils # (A) 0.1 k/uL (0-0.7); Eosinophils % (A) 1 %; HCT 44.5 % (39.0-53.0); HDW 2.81; HGB 13.9 gm/dL (13.0-17.5); Luc # (Auto) 0.27; Luc % (Auto) 3; Lymphocytes # (A) 2.4 k/uL (1.0-4.8); Lymphocytes % (A) 24 %; MCH 28.2 pg (25.0-35.0); MCHC 31.2 g/dL (31.0-37.0); MCV 90.3 fL (80.0-100.0); Mean Platelet Volume 9.2; Monocytes # (A) 0.4 k/uL (0-1.0); Monocytes % (A) 4 %; Neutrophils # (A) 6.7 k/uL (1.3-7.7); Neutrophils % (A) 68 %; RBC 4.93 m/uL (4.30-5.90); RDW 15.6 % (11.5-15.5); WBC 9.9 k/uL (3.8-10.6); WBC (Perox) 9.61
[2016-10-28 05:23] LABS: INR 1.1 (<1.2); Prothrombin Time 11.3 sec (9.0-12.0)
[2016-10-28 05:38] LABS: ALT 28 U/L (21-72); AST 25 U/L (17-59); Alkaline Phosphatase 100 U/L (38-126); Anion Gap 9 mmol/L; Blood Urea Nitrogen 19 mg/dL (9-20); Calcium 8.9 mg/dL (8.4-10.2); Carbon Dioxide 23 mmol/L (22-30); Chloride 107 mmol/L (98-107); Glucose 120 mg/dL (74-99); Magnesium 2.3 mg/dL (1.6-2.3); Non-African American GFR(MDRD) >60 (>60 ml/min/1.73 sqM); Phosphorous 4.2 mg/dL (2.5-4.5); Potassium 4.6 mmol/L (3.5-5.1); Sodium 139 mmol/L (137-145); Total Bilirubin 0.7 mg/dL (0.2-1.3); Total Protein 6.3 g/dL (6.3-8.2)
[2016-10-28] MEDS: MORPHINE SULFATE IR 15 MG TABLET PO PRN ×3 (07:04→18:59)
[2016-10-28] MEDS: SYMBICORT 160-4.5 MCG INHALER INHALATION SCH ×2 (07:21→19:14)
[2016-10-28] MEDS: IPRATROPIUM-ALBUTEROL 3 ML NEB INHALATION SCH ×4 (07:21→19:14)
--- NOTE | 2016-10-28 08:09 | XR ---
EXAMINATION TYPE: XR chest 1V DATE OF EXAM: 10/28/2016 COMPARISON: CT chest dated 07/16/2016 HISTORY: Chest pain and saddle pulmonary embolus. TECHNIQUE: Single frontal view of the chest is obtained. FINDINGS: There is no focal air space opacity, pleural effusion, or pneumothorax seen. The cardiac silhouette size is prominent in size. The osseous structures are intact. IMPRESSION: No acute cardiopulmonary process. No focal wedge-shaped consolidations to indicate pulmo nary infarct.
[2016-10-28] MEDS ORDERED: [UNRECOGNIZED DRUG - OTHER] PO SCH (09:00)
[2016-10-28] MEDS ORDERED: HCTHIAZID PO SCH (09:00)
[2016-10-28] MEDS: FUROSEMIDE 20 MG TAB PO SCH (09:00)
[2016-10-28] MEDS: amLODIPine 10 MG TAB PO SCH (09:00)
[2016-10-28] MEDS: LOSARTAN 50 MG TAB PO SCH ×2 (09:00→10:33)
[2016-10-28] MEDS: HYDROCHLOROTHIAZIDE 25 MG TAB PO SCH (09:00)
[2016-10-28] MEDS: PANTOPRAZOLE 40 MG/10 ML VIAL IVP SCH (09:00)
[2016-10-28] MEDS: HEPARIN SODIUM,PORCINE/D5W PMX 25,000 UNIT in DEXTROSE/WATER 1 500ML.BAG IV SCH (09:00)
[2016-10-28] MEDS ORDERED: OLMESARTAN PO SCH (09:00)
[2016-10-28] MEDS ORDERED: AMLODIPIN PO SCH (09:00)
[2016-10-28] MEDS: ASPIRIN 81 MG CHEW PO SCH (09:00)
--- NOTE | 2016-10-28 12:50 | P.PN ---
<Deepika Brandon A - Last Filed: 10/28/16 12:44> Subjective This is a 56-year-old male one of Dr. 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 Crooks's office because of increased chest pain associated with increased shortness breath walking a few steps on patient had an EKG Dr. Crooks's office that showed right ventricular strain pattern was sent to the ER for evaluation his d-dimer came back elevated he ended up going for computed tomography scan of the chest with contrast that was positive for bilateral saddle pulmonary emboli, he was seen in consultation by Dr. Kee from critical care and pulmonary medicine, he had an Echocardiogram and EKG at the bedside there is significant right ventricular strain pattern on EKG however the echocardiogram was still pending at the time of dictation, patient stated that he was in his usual state of health about last when he was getting out and walking around loaded and he suddenly developed to have a severe chest pain associated with pleurisy not able to walk a few steps he did not do anything about it he ended up going back home he stated lipase without any relief patient apparently was seen recently by Dr. Thompson for his COPD/asthma he was placed on Symbicort 160/4.5 g 2 puffs inhalation twice every day along with Combivent Respimat 2 puffs inhal QID and patient when he did use it recently he felt a lot worse he ended up coming to the hospital as I stated above and he was seen in the ER and he was admitted to the intensive care unit for evaluation and treatment. Of notice patient was seen by hematology oncology in June 2016 and he ended up going for a computed tomography scan of the chest that was negative for acute of normalities because of hemoptysis that he developed. 10/28: Patient remains in the intensive care unit. He is on a heparin drip. Blood pressure is on the lower side and blood pressure medications have been adjusted. He states he is breathing easier today from yesterday. He also states his abdomen is less bloated from yesterday. Ultrasound of lower extremity was positive for popliteal DVT on the left. Patient will be transferred to [facility] care later this afternoon. He is followed by Dr. Kee for intensive care/pulmonary management. Objective - Vital Signs Vital signs: Vital Signs Temp 98.1 F 10/28/16 12:00 Pulse 102 H 10/28/16 12:00 Resp 16 10/28/16 12:00 BP 102/63 10/28/16 12:00 Pulse Ox 92 L 10/28/16 12:00 Intake & Output 10/27/16 10/28/16 10/28/16 18:59 06:59 18:59 Intake Total 780 2008.567 1000 Output Total 150 500 250 Balance 630 1508.567 750 Weight 144.1 kg 144.1 kg Intake: IV 300 1300 500 Sodium Chloride 0.9% 1, 300 1300 500 000 ml @ 100 mls/hr IV . Q10H [facility] Rx#:[id number] Intake, IV Titration 428.567 500 Amount Heparin Sodium,Porcine/ 428.567 500 D5w Pmx 25,000 unit In Dextrose/Water 1 500ml. bag @ 16.9 UNITS/KG/HR 45 .99 mls/hr IV .[id number] [facility] Rx#:[id number] Oral 480 280 Output: Urine 150 500 250 Other: Voiding Method Urinal Urinal Urinal - Exam General appearance: mild distress, morbidly obese - EENT Eyes: anicteric sclerae, EOMI, PERRLA, no ptosis, no scleral icterus, normal appearance ENT: NA/AT, normal oropharynx, no thrush, no tonsillar exudates Ears: bilateral: normal - Neck Neck: no lymphadenopathy, normal ROM, no rigidity, no stridor, no thyromegaly Carotids: bilateral: upstroke normal Thyroid: bilateral: normal size - Respiratory Respiratory: bilateral: diminished, negative: dullness, rales, rhonchi, wheezing - Cardiovascular Rhythm: regular Heart sounds: normal: S1, S2 Abnormal Heart Sounds: systolic murmur, no rub, S3 Gallop, no S4 Gallop, no click - Gastrointestinal General gastrointestinal: normal bowel sounds, soft, no splenomegaly, no tenderness, no umbilical hernia, no ventral hernia - Integumentary Integumentary: normal, normal turgor - Neurologic Neurologic: CNII-XII intact - Musculoskeletal Musculoskeletal: generalized weakness, strength equal bilaterally - Psychiatric Psychiatric: A&O x's 3, appropriate affect, intact judgment & insight - Labs CBC & Chem 7: 10/28/16 04:12 10/28/16 04:12 Labs: Abnormal Lab Results - Last 24 Hours (Table) 10/27/16 10/27/16 10/28/16 Range/Units 15:35 18:29 04:12 RDW 15.6 H (11.5-15.5) % APTT 70.3 H (22.0-30.0) sec Glucose (74-99) mg/dL POC Glucose (mg/dL) 120 H (75-99) mg/dL 10/28/16 10/28/16 Range/Units 04:12 04:12 RDW (11.5-15.5) % APTT 53.5 H (22.0-30.0) sec Glucose 120 H (74-99) mg/dL POC Glucose (mg/dL) (75-99) mg/dL Microbiology - Last 24 Hours (Table) 10/27/16 09:30 Blood Culture - Preliminary Blood No Growth after 24 hours Assessment and Plan Plan: 1. Bilateral saddle pulmonary emboli with left popliteal DVT. 12-lead EKG showed right ventricular strain pattern, Echocardiogram report is pending, patient was seen in consultation by Dr. Kee from pulmonary and critical care medicine it was felt that the patient did not need to be on t-PA at this point in time since he was hemodynamically stable. Continue heparin drip per protocol, transfer to [facility] care this afternoon. 2. Hypertension and hypertensive cardio vascular disease. Continue patient on only losartan 50 mg daily. 3. Chronic pain syndrome. Continue patient on MSIR 15 mg orally 3 times every day. 4. 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 Continue patient on gabapentin 400 mg orally 3 times every day. 5. Obesity with obstructive sleep apnea and obesity hypoventilation syndrome. Patient will need to go for a polysomnogram as an outpatient. 6. COPD and mild persistent asthma. Start the patient on Symbicort 160/4.5 g 2 puff inhalation twice every day, continue DuoNeb 3 mL nebulization 4 times every day, continue oxygen support at 4 L nasal cannula. 7. Elevated liver function test. Thought to be due to fatty filtration of the liver and possible narcotics. 8. Acute kidney injury and top of possible chronic disease stage II. IV fluid resuscitation, monitor the patient CMP, magnesium, phosphorus the next 24 hours , monitor for contrast nephropathy. 9. DVT prophylaxis. Currently on heparin drip. 10. GI prophylaxis. Start the patient on Protonix 40 mg IV push every 24 hours. 11. Patient is full code. Discharge plan: Return home Impression and plan of care have been directed as dictated by the signing physician. Deepika Brandon nurse practitioner acting as scribe for signing physician. <Kolton Zepeda - Last Filed: 10/28/16 21:33> Objective - Vital Signs Vital signs: Vital Signs Temp 98.7 F 10/28/16 20:00 Pulse 108 H 10/28/16 20:00 Resp 15 10/28/16 20:00 BP 113/80 10/28/16 20:00 Pulse Ox 95 10/28/16 20:00 Intake & Output 10/28/16 10/28/16 10/29/16 06:59 18:59 06:59 Intake Total 2008.567 1000 20 Output Total 048 950 0304 Balance 1508.567 400 -1580 Weight 144.1 kg Intake: IV 1300 500 20 Sodium Chloride 0.9% 1, 1300 500 20 000 ml @ 20 mls/hr IV . Q24H [facility] Rx#:[id number] Intake, IV Titration 428.567 500 Amount Heparin Sodium,Porcine/ 428.567 500 D5w Pmx 25,000 unit In Dextrose/Water 1 500ml. bag @ 16.9 UNITS/KG/HR 45 .99 mls/hr IV .[id number] [facility] Rx#:[id number] Oral 280 Output: Urine 864 961 8176 Other: Voiding Method Urinal Urinal - Labs CBC & Chem 7: 10/28/16 04:12 10/28/16 04:12 Labs: Abnormal Lab Results - Last 24 Hours (Table) 10/28/16 10/28/16 10/28/16 Range/Units 04:12 04:12 04:12 RDW 15.6 H (11.5-15.5) % APTT 53.5 H (22.0-30.0) sec Glucose 120 H (74-99) mg/dL Microbiology - Last 24 Hours (Table) 10/27/16 09:30 Blood Culture - Preliminary Blood No Growth after 24 hours Assessment and Plan Plan: DVT of the left popliteal vein continue with heparin drip and will transitioned to Xarelto or Eliquis for 6 months.
--- NOTE | 2016-10-28 13:25 | P.CRDCN ---
History of Present Illness Chief complaint: acute PE History of present illness: 48 atrial male patient with obesity and degenerative disc disease as well as of the large joints who presented with pulmonary embolism. He had been complaining of increasing shortness of breath for the last few days with minimal activity and even at rest. No chest discomfort no hemoptysis he did complain of swelling in the legs but daily so on the left side but he has always had swollen legs. Computed tomography scan showed a saddle pulmonary embolism with segmental emboli in multiple lobes. Twelve-lead ECG showed a strain pattern 2-D echo showed the pressures in the 40 mmHg and dilated RV. He was treated with IV heparin in the ER and was seen by pulmonology. Sinus tachycardia heart rate 105 beats a minute initially Past history of back discomfort and arthritis of the hips and the knees obesity hypertension Social history past history of smoking Family history, father had history of either DVT or pulmonary embolism Medications at home included Lasix losartan and amlodipine hydrochlorothiazide combination Neurontin aspirin inhalers ALLERGIES to tramadol unknown reaction Review of systems: No fever chills or rigors, no cough, phlegm or expectoration , no nausea, vomiting or diarrhea, no hematuria, dysuria, no musculoskeletal complaints, no strokes or seizures, no skin lesions.. His main complaint has been lower extremity edema left greater than right and increasing shortness of breath for the last several days possibly even a few weeks No recent injuries no recent surgeries no recent long travel no history of any cancer Labs are reviewed hemoglobin is normal d-dimer 7.5, electrolytes normal renal function normal, troponin 0.149, BNP greater than 5500 LFTs normal On examination Blood pressure 140/61 mmHg respirations 20 but he is not in any acute distress at this time also rate of 100 beats a minute sinus tachycardia pulse ox 93% on a 3 L nasal cannula Lying flat in bed Thick neck, Central obesity noted Heart sounds are tachycardic no murmurs no gallops Breath sounds are reduced bilaterally no rhonchi no crackles Abdomen is soft nontender Extremities warm, bilateral edema left greater than right Impression Pulmonary embolism saddle-type with emboli bilaterally on IV heparin and improving Patient did not receive thrombo-lytic therapy in the ER He was started on IV heparin Hypertension, on therapy at home Blood pressure in the normal range at this time Abnormal troponins in the setting of RV strain secondary to pulmonary embolism No evidence for acute myocardial infarction and ECG. This does not represent an acute myocardial infarction Suggest Management of pulmonary embolism per pulmonology Antihypertensive therapy to continue once pulmonary embolism status improves Will follow on a when necessary basis, continue telemetry monitoring watch for any atrial fibrillation that may develop during the acute phase Past Medical History Past Medical History: Asthma, COPD, Hypertension, Osteoarthritis (OA), Sleep Apnea/CPAP/BIPAP Additional Past Medical History / Comment(s): Hemoptysis/SOB and had bronch for this 07/30/16, chronic low back pain, bilateral lower extremity edema, bilateral tinnitis. History of Any Multi-Drug Resistant Organisms: None Reported Past Surgical History: Adenoidectomy, Orthopedic Surgery, Tonsillectomy Additional Past Surgical History / Comment(s): 07/30/16 bronchoscopy with BAL, LT LEG INJURY REPAIR, COLONOSCOPY. Past Anesthesia/Blood Transfusion Reactions: No Reported Reaction Smoking Status: Former smoker - Past Family History Mother Family Medical History: Cancer, Renal Disease Additional Family Medical History / Comment(s): LUNG CANCER. MOTHER OF KIDNEY DISEASE AFTER RECEIVING HER NIMO'S DONOR KIDNEY. SHE WAS 75YRS OLD. Father Family Medical History: Cancer Additional Family Medical History / Comment(s): MULTIPLE MYELOMA Brother(s) Family Medical History: Pulmonary Embolus Sister(s) Family Medical History: No Reported History Daughter(s) Family Medical History: No Reported History Son(s) Family Medical History: No Reported History Medications and Allergies Home Medications Medication Instructions Recorded Confirmed Type Furosemide [Lasix] 20 mg PO DAILY 07/29/16 10/27/16 History Olmesartan/Amlodipin/Hcthiazid 1 tab PO DAILY 07/29/16 10/27/16 History [Tribenzor 40-10-25 mg Tablet] Gabapentin [Neurontin] 400 mg PO TID PRN 08/10/16 10/27/16 History Aspirin EC [Ecotrin Low Dose] 81 mg PO DAILY 10/27/16 10/27/16 History Budesonide-Formot 160-4.5 Mcg 2 puff INHALATION RT-DAILY 10/27/16 10/27/16 History [Symbicort 160-4.5 Mcg Inhaler] Ipratropium/Albuterol Sulfate 1 puff INHALATION QID PRN 10/27/16 10/27/16 History [Combivent Respimat Inhaler] Morphine Sulfate Ir [Msir] 15 mg PO TID PRN 10/27/16 10/27/16 History Allergies Allergy/AdvReac Type Severity Reaction Status Date / Time tramadol AdvReac Chest Pain Verified 10/27/16 09:37 Physical Exam Vitals: Vital Signs Temp Pulse Resp BP Pulse Ox 10/28/16 12:00 98.1 F 102 H 16 102/63 92 L 10/28/16 11:30 104 H 10/28/16 11:21 104 H 10/28/16 11:00 99 20 114/61 93 L 10/28/16 10:00 102 H 17 104/75 92 L 10/28/16 09:00 103 H 22 106/67 91 L 10/28/16 08:00 98.3 F 110 H 21 98/78 94 L 10/28/16 07:32 96 10/28/16 07:22 96 94 L 10/28/16 06:00 95 19 85/48 93 L 10/28/16 05:00 99 14 111/66 95 10/28/16 04:00 97 20 114/54 94 L 10/28/16 03:33 17 10/28/16 03:00 96 13 112/56 94 L 10/28/16 02:00 104 H 17 109/57 94 L 10/28/16 01:00 105 H 16 111/60 93 L 10/28/16 00:00 97.8 F 96 14 106/61 93 L 10/27/16 23:00 93 17 118/58 90 L 10/27/16 22:00 100 15 90/60 91 L 10/27/16 21:00 105 H 22 100/54 93 L 10/27/16 20:39 97 10/27/16 20:30 99 16 103/63 99 10/27/16 20:26 96 10/27/16 20:00 99.0 F 101 H 17 88/69 93 L 10/27/16 19:30 100 17 105/60 94 L 10/27/16 19:00 101 H 19 132/78 94 L 10/27/16 18:00 109 H 19 99/60 93 L 10/27/16 17:00 109 H 23 95/71 93 L 10/27/16 16:30 103 H 12 97/56 92 L 10/27/16 16:00 106 H 25 H 118/68 92 L 10/27/16 15:40 98.2 F 107 H 23 118/68 95 10/27/16 14:30 104 H 22 127/74 96 10/27/16 13:30 106 H 20 110/58 95 Intake and Output 10/27/16 10/28/16 10/28/16 22:59 06:59 14:59 Intake Total 1888.800 110 2416 Output Total 150 500 250 Balance 1738.567 400 750 Intake: IV 700 900 500 Sodium Chloride 0.9% 1, 700 900 500 000 ml @ 100 mls/hr IV . Q10H [facility] Rx#:[id number] Intake, IV Titration 428.567 500 Amount Heparin Sodium,Porcine/ 428.567 500 D5w Pmx 25,000 unit In Dextrose/Water 1 500ml. bag @ 16.9 UNITS/KG/HR 45 .99 mls/hr IV .[id number] [facility] Rx#:[id number] Oral 760 Output: Urine 150 500 250 Other: Voiding Method Urinal Urinal Urinal Weight 144.1 kg Results 10/28/16 04:12 10/28/16 04:12 Cardiac Enzymes 10/28/16 Range/Units 04:12 AST 25 (17-59) U/L Coagulation 10/27/16 10/28/16 10/28/16 Range/Units 18:29 04:12 04:12 PT 11.3 (9.0-12.0) sec APTT 70.3 H 53.5 H (22.0-30.0) sec CBC 10/28/16 Range/Units 04:12 WBC 9.9 (3.8-10.6) k/uL RBC 4.93 (4.30-5.90) m/uL Hgb 13.9 (13.0-17.5) gm/dL Hct 44.5 (39.0-53.0) % Plt Count 150 (150-450) k/uL Comprehensive Metabolic Panel 10/28/16 Range/Units 04:12 Sodium 139 (137-145) mmol/L Potassium 4.6 (3.5-5.1) mmol/L Chloride 107 (98-107) mmol/L Carbon Dioxide 23 (22-30) mmol/L BUN 19 (9-20) mg/dL Creatinine 1.20 (0.66-1.25) mg/dL Glucose 120 H (74-99) mg/dL Calcium 8.9 (8.4-10.2) mg/dL AST 25 (17-59) U/L ALT 28 (21-72) U/L Alkaline Phosphatase 100 (38-126) U/L Total Protein 6.3 (6.3-8.2) g/dL Albumin 3.7 (3.5-5.0) g/dL Current Medications Generic Name Dose Route Start Last Admin Trade Name Freq PRN Reason Stop Dose Admin Acetaminophen 650 mg 10/27/16 13:24 Tylenol Tab PO Q4HR PRN Fever and/or Mild Pain Albuterol/Ipratropium 3 ml 10/28/16 08:00 10/28/16 11:19 Duoneb 0.5 Mg-3 Mg/3 Ml Soln INHALATION 3 ml RT-QID [facility] Administration Albuterol/Ipratropium 3 ml 10/27/16 20:53 Duoneb 0.5 Mg-3 Mg/3 Ml Soln INHALATION RT-Q2H PRN Shortness Of Breath Or Wheezing Aspirin 81 mg 10/28/16 09:00 10/28/16 09:00 Aspirin PO 81 mg DAILY [facility] Administration Budesonide/Formoterol Fumarate 2 puff 10/27/16 20:00 10/28/16 07:21 Symbicort 160-4.5 Mcg Inhaler INHALATION 2 puff RT-BID [facility] Administration Gabapentin 400 mg 10/27/16 14:25 10/27/16 20:37 Neurontin PO 400 mg TID PRN Administration Pain Heparin Sodium/Dextrose 25,000 500 mls @ 45.99 mls/hr 10/27/16 11:35 09:00 unit/ IV Solution IV 16.9 units/kg/hr .[id number] [facility] 45.99 mls/hr Protocol Administration 16.9 UNITS/KG/HR Sodium Chloride 1,000 mls @ 20 mls/hr 10/27/16 13:30 10/28/16 10:24 Saline 0.9% IV 100 mls/hr .Q24H [facility] Administration Losartan Potassium 50 mg 10/28/16 10:30 10/28/16 10:33 Cozaar PO 50 mg DAILY [facility] Administration Miscellaneous Information 1 each 10/27/16 10:51 10/27/16 12:35 Rx Info: Iv Contrast Was Given MISCELLANE 10/29/16 10:51 1 each DAILY PRN Administration Per Protocol Morphine Sulfate 15 mg 10/27/16 14:25 10/28/16 12:25 Msir PO 15 mg TID PRN Administration Pain Naloxone HCl 0.2 mg 10/27/16 13:24 Narcan IV Q2M PRN Opioid Reversal Pantoprazole Sodium 40 mg 10/28/16 09:00 10/28/16 09:00 Protonix IVP 40 mg DAILY [facility] Administration Intake and Output 10/27/16 10/28/16 10/28/16 22:59 06:59 14:59 Intake Total 1888.676 521 4686 Output Total 150 500 250 Balance 1738.567 400 750 Intake: IV 700 900 500 Sodium Chloride 0.9% 1, 700 900 500 000 ml @ 100 mls/hr IV . Q10H [facility] Rx#:[id number] Intake, IV Titration 428.567 500 Amount Heparin Sodium,Porcine/ 428.567 500 D5w Pmx 25,000 unit In Dextrose/Water 1 500ml. bag @ 16.9 UNITS/KG/HR 45 .99 mls/hr IV .[id number] [facility] Rx#:[id number] Oral 760 Output: Urine 150 500 250 Other: Voiding Method Urinal Urinal Urinal Weight 144.1 kg 10/28/16 04:12 10/28/16 04:12
--- NOTE | 2016-10-28 14:47 | P.PN ---
Subjective A very pleasant 56-year-old obese male patient with known history of chronic degenerative arthritis involving the back and large joints/hips/knees was been bleeding essentially incidentally lifestyle. The patient also has a positive family history for pulmonary embolism as his father was diagnosed having PE and he also had an underlying multiple myeloma. The patient was in a good state of health in approximately 5 days ago when he acutely started getting short of breath and he progressively got worse to the point where he was getting short of breath with limited amount of activity and sometimes even at rest. No hemoptysis. No pleurisy. No chest pain.No calf pain. He had swelling in lower extremities bilaterally. He was concerned and for that reason he came into the hospital with a CT angios the chest was done and it showed bilateral pulmonary embolism And the CAT scan showed a saddle embolism nonocclusive centrally but there was many subsegmental pulmonary emboli bilaterally and segmental emboli each lobe of the lung. There was evidence of any active mediastinal lymphadenopathy. Scattered areas of groundglass opacity within the lung/atelectasis/early infarct. There was a right ventricular strain pattern on the CT angios the chest and for that reason a stat echocardiogram was done that showed a preserved LV function with a PA pressures in the mid 40s and dilation of the right ventricle. The patient was started on IV heparin. He remains hemodynamically stable. In fact his systolic blood pressures in the 140s. He is slightly tachycardic and he is in sinus tachycardia with a heart rate of 105. He is on 42 of oxygen nasal cannula and his pulse is around 95%. Denies having any recent surgery. No orthopedic surgery. No trauma. No malignancy. No personal history of DVT or pulmonary embolism. No change in mental status. No syncope. He has clinical features of obstructive sleep apnea although this has not been diagnosed officially. On 10/28/2016 the patient remains in intensive care unit. The patient on IV heparin. Clinically improved compared to yesterday. He is coughing out minimal amount of blood-tinged sputum. Hemodynamically stable. Less short of breath. In fact there is no shortness of breath at rest. No tachycardia. Hemodynamically stable. Producing adequate amount of urine output. The venous Doppler showed a DVT in the left popliteal vein. Objective - Vital Signs Vital signs: Vital Signs Temp 98.1 F 10/28/16 12:00 Pulse 102 H 10/28/16 12:00 Resp 16 10/28/16 12:00 BP 102/63 10/28/16 12:00 Pulse Ox 92 L 10/28/16 12:00 Intake & Output 10/27/16 10/28/16 10/28/16 18:59 06:59 18:59 Intake Total 780 2008.567 1000 Output Total 150 500 250 Balance 630 1508.567 750 Weight 144.1 kg 144.1 kg Intake: IV 300 1300 500 Sodium Chloride 0.9% 1, 300 1300 500 000 ml @ 100 mls/hr IV . Q10H [facility] Rx#:[id number] Intake, IV Titration 428.567 500 Amount Heparin Sodium,Porcine/ 428.567 500 D5w Pmx 25,000 unit In Dextrose/Water 1 500ml. bag @ 16.9 UNITS/KG/HR 45 .99 mls/hr IV .[id number] [facility] Rx#:[id number] Oral 480 280 Output: Urine 150 500 250 Other: Voiding Method Urinal Urinal Urinal - Exam Obese, comfortable likely distress.Head exam was generally normal. There was no scleral icterus or corneal arcus. Mucous membranes were moist. Neck is short and supple and the patient has significant crowding of the posterior oropharynx with a Mallampati class IV. No goiter or neck masses. Lungs sounds are diminished in lung bases otherwise clear. Breath sounds are equal and symmetrical bilaterally.Cardiac exam revealed the PMI to be normally situated and sized. The rhythm was regular and no extrasystoles were noted during several minutes of auscultation. The first and second heart sounds were normal and physiologic splitting of the second heart sound was noted. There were no murmurs, rubs, clicks, or gallops. Abdomen soft nontender. No direct tenderness rebound tensile guarding. Extremities reveal +1 edema and there is no cyanosis or clubbing. No calf tenderness. No open wounds or sores. Neurologically, the patient is awake and alert. - Labs CBC & Chem 7: 10/28/16 04:12 10/28/16 04:12 Labs: Abnormal Lab Results - Last 24 Hours (Table) 10/27/16 10/27/16 10/28/16 Range/Units 15:35 18:29 04:12 RDW 15.6 H (11.5-15.5) % APTT 70.3 H (22.0-30.0) sec Glucose (74-99) mg/dL POC Glucose (mg/dL) 120 H (75-99) mg/dL 10/28/16 10/28/16 Range/Units 04:12 04:12 RDW (11.5-15.5) % APTT 53.5 H (22.0-30.0) sec Glucose 120 H (74-99) mg/dL POC Glucose (mg/dL) (75-99) mg/dL Microbiology - Last 24 Hours (Table) 10/27/16 09:30 Blood Culture - Preliminary Blood No Growth after 24 hours Assessment and Plan Plan: Assessment 1 acute bilateral pulmonary embolism. The patient has unprovoked pulmonary embolism and his main risk factor is positive family history and sedentary lifestyle. The patient had a CT angios the chest that showed segmental and subsegmental pulmonary artery occlusions bilaterally and there was a nonocclusive saddle embolus. There is evidence of moderate degree of pulmonary hypertension. PA pressures based on echocardiogram the mid 40s. Nevertheless, the patient is on oxygen at 4 L and is oxygenating well for the time being. No significant tachycardia. No hemodynamic instability and his blood pressure is well maintained. On 10/28/2016 the patient on IV heparin. Clinically much improved. Hemodynamically stable. Less short of breath. He is having minimal amount of hemoptysis/blood-tinged sputum probably due to an underlying pulmonary infarcts. We'll continue him with anticoagulation for now. The patient was confirmed to have a DVT of the left lower extremity/popliteal vein 2 obesity 3 sedentary lifestyle 4 positive family history of pulmonary embolism 5 hypertension 6 COPD/bronchial asthma 7 degenerative arthritis with chronic back pain and difficulty with mobility and gait 8 renal insufficiency, possibly acute kidney injury , and today's creatinine is down to 1.2. 9 left popliteal vein DVT. Plan Antinea IV heparin. We'll get an authorization for oral anticoagulants, prefer Eliquis. Hemodynamically stable. Echocardiogram was noted. Ultrasound of the lower extremity was noted. Hemoglobin is stable. Monitor renal function. Monitor platelet count, as the patient started over the plated count of 191 is down to 150. We'll move the patient out of the intensive care unit today.
--- NOTE | 2016-10-28 18:50 | ECHOF ---
Referral Reason:pulmonary embolism with right heart strain MEASUREMENTS -------- HEIGHT: 180.3 cm WEIGHT: 136.1 kg BP: 162/114 RVIDd: 3.6 cm (< 3.3) IVSd: 1.5 cm (0.6 - 1.1) LVIDd: 3.9 cm (3.9 - 5.3) LVPWd: 1.4 cm (0.6 - 1.1) EDV(Teich): 66 ml IVSs: 2.0 cm LVIDs: 2.6 cm LVPWs: 1.8 cm %IVS Thck: 32 % ESV(Teich): 26 ml EF(Teich): 61 % %FS: 32 % SV(Teich): 40 ml LALs A4C: 5.0 cm LAAs A4C: 14.5 cm LAESV A-L A4C: 36 ml LAESV MOD A4C: 30 ml Ao Diam: 3.6 cm (2.0 - 3.7) AV Cusp: 1.4 cm (1.5 - 2.6) LA Diam: 2.2 cm (2.7 - 3.8) MV E Adria: 0.77 m/s MV DecT: 177 ms MV Dec Van Zandt: 4.3 m/s MV A Adria: 0.77 m/s MV E/A Ratio: 1.00 MV PHT: 51 ms E/E': 5.84 E': 0.13 m/s AV Vmax: 0.76 m/s AV maxP.30 mmHg TR Vmax: 3.26 m/s TR maxP.51 mmHg RAP: 5.00 mmHg RVSP: 47.51 mmHg FINDINGS -------- Resting tachycardia (HR>100bpm). This was a technically difficult study with suboptimal views. There is moderate concentric left ventricular hypertrophy. Overall left ventricular systolic function is normal with, an EF between 60 - 65 %. The right ventricle is severely enlarged. The left atrium was not well visualized. RA appears enlarged. 1.5mg of Definity was utilized for enhancement of images Aortic valve is trileaflet and is mildly thickened. There is no evidence of aortic regurgitation. There is no evidence of aortic stenosis. The mitral valve leaflets are mildly thickened. There is trace mitral regurgitation. Trace tricuspid regurgitation present. There is moderate pulmonary hypertension. The right ventricular systolic pressure, as measured by Doppler, is 47.51mmHg. The pulmonic valve was not well visualized. The aortic root size is normal. Normal inferior vena cava with normal inspiratory collapse consistent with estimated right atrial pressure of 5 mmHg. The pericardium is normal. There is no pericardial effusion. CONCLUSIONS -------- 1. Resting tachycardia (HR>100bpm). 2. The mitral valve leaflets are mildly thickened. 3. There is trace mitral regurgitation. 4. Trace tricuspid regurgitation present. 5. There is moderate pulmonary hypertension. 6. The right ventricular systolic pressure, as measured by Doppler, is 47.51mmHg. 7. The pulmonic valve was not well visualized. 8. The aortic root size is normal. 9. There is no pericardial effusion. 10. This was a technically difficult study with suboptimal views. 11. There is moderate concentric left ventricular hypertrophy. 12. Overall left ventricular systolic function is normal with, an EF between 60 - 65 %. 13. The right ventricle is severely enlarged. 14. The left atrium was not well visualized. 15. RA appears enlarged. 16. 1.5mg of Definity was utilized for enhancement of images 17. Aortic valve is trileaflet and is mildly thickened. [employer]OM OPERATOR: Vasyl Hannah RDCS
[2016-10-29] MEDS: HEPARIN SODIUM,PORCINE/D5W PMX 25,000 UNIT in DEXTROSE/WATER 1 500ML.BAG IV SCH ×2 (00:43→06:58)
[2016-10-29 04:56] LABS: CH 29.7; CHCM 34.5; HCT 37.7 % (39.0-53.0); HDW 2.86; HGB 12.7 gm/dL (13.0-17.5); MCH 29.1 pg (25.0-35.0); MCHC 33.5 g/dL (31.0-37.0); MCV 86.7 fL (80.0-100.0); Mean Platelet Volume 9.4; RBC 4.35 m/uL (4.30-5.90); RDW 15.9 % (11.5-15.5); WBC 8.7 k/uL (3.8-10.6)
[2016-10-29 05:15] LABS: INR 1.1 (<1.2); Partial Thromboplastin Time 54.7 sec (22.0-30.0); Prothrombin Time 11.2 sec (9.0-12.0)
[2016-10-29 05:20] LABS: Calcium 8.7 mg/dL (8.4-10.2); Magnesium 2.3 mg/dL (1.6-2.3); Phosphorous 3.7 mg/dL (2.5-4.5)
[2016-10-29 05:21] LABS: Chloride 106 mmol/L (98-107); Glucose 119 mg/dL (74-99); Potassium 4.2 mmol/L (3.5-5.1); Sodium 141 mmol/L (137-145)
[2016-10-29 05:22] LABS: Anion Gap 8 mmol/L; Blood Urea Nitrogen 15 mg/dL (9-20); Carbon Dioxide 27 mmol/L (22-30); Non-African American GFR(MDRD) >60 (>60 ml/min/1.73 sqM)
--- NOTE | 2016-10-29 06:57 | XR ---
EXAMINATION TYPE: XR chest 1V DATE OF EXAM: 10/29/2016 COMPARISON: 10/28/2016 HISTORY: Pulmonary embolus TECHNIQUE: Single frontal view of the chest is obtained. FINDINGS: There is no focal air space opacity, pleural effusion, or pneumothorax seen. The cardiac silhouette size is upper limits of normal. The osseous structures are intact. IMPRESSION: No acute cardiopulmonary process. Again no focal wedge shaped consolidations to indicate pulmonary infarct.
[2016-10-29] MEDS: LOSARTAN 50 MG TAB PO SCH ×2 (08:29→11:18)
[2016-10-29] MEDS: ASPIRIN 81 MG CHEW PO SCH (08:29)
[2016-10-29] MEDS: PANTOPRAZOLE 40 MG/10 ML VIAL IVP SCH (08:29)
[2016-10-29] MEDS: MORPHINE SULFATE IR 15 MG TABLET PO PRN ×3 (08:31→20:15)
[2016-10-29] MEDS: SYMBICORT 160-4.5 MCG INHALER INHALATION SCH ×2 (09:16→19:44)
[2016-10-29] MEDS: IPRATROPIUM-ALBUTEROL 3 ML NEB INHALATION SCH ×4 (09:16→19:43)
[2016-10-29] MEDS: APIXABAN 5 MG TAB PO SCH ×2 (11:14→20:15)
[2016-10-29] MEDS: amLODIPine 10 MG TAB PO SCH (11:18)
[2016-10-29] MEDS: HYDROCHLOROTHIAZIDE 25 MG TAB PO SCH (11:18)
[2016-10-29] MEDS: FUROSEMIDE 20 MG TAB PO SCH (11:18)
--- NOTE | 2016-10-29 13:18 | P.PN ---
Subjective This is a 56-year-old male one of Dr. 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 Crooks's office because of increased chest pain associated with increased shortness breath walking a few steps on patient had an EKG Dr. Crooks's office that showed right ventricular strain pattern was sent to the ER for evaluation his d-dimer came back elevated he ended up going for computed tomography scan of the chest with contrast that was positive for bilateral saddle pulmonary emboli, he was seen in consultation by Dr. Kee from critical care and pulmonary medicine, he had an Echocardiogram and EKG at the bedside there is significant right ventricular strain pattern on EKG however the echocardiogram was still pending at the time of dictation, patient stated that he was in his usual state of health about last when he was getting out and walking around loaded and he suddenly developed to have a severe chest pain associated with pleurisy not able to walk a few steps he did not do anything about it he ended up going back home he stated lipase without any relief patient apparently was seen recently by Dr. Thompson for his COPD/asthma he was placed on Symbicort 160/4.5 g 2 puffs inhalation twice every day along with Combivent Respimat 2 puffs inhal QID and patient when he did use it recently he felt a lot worse he ended up coming to the hospital as I stated above and he was seen in the ER and he was admitted to the intensive care unit for evaluation and treatment. Of notice patient was seen by hematology oncology in June 2016 and he ended up going for a computed tomography scan of the chest that was negative for acute of normalities because of hemoptysis that he developed. 10/28: Patient remains in the intensive care unit. He is on a heparin drip. Blood pressure is on the lower side and blood pressure medications have been adjusted. He states he is breathing easier today from yesterday. He also states his abdomen is less bloated from yesterday. Ultrasound of lower extremity was positive for popliteal DVT on the left. Patient will be [facility] this afternoon. He is followed by Dr. Kee for intensive care/pulmonary management. 10/29: Cardiology has evaluated the patient and is now following on an as-needed basis. Repeat chest x-ray shows no acute cardiopulmonary process. Heparin drip is off and eliquis started. Patient is been transferred out of ICU to [facility] today. Breathing status is stable. Objective - Vital Signs Vital signs: Vital Signs Temp 99.9 F H 10/29/16 04:00 Pulse 102 H 10/29/16 04:00 Resp 12 10/29/16 04:00 BP 81/59 10/29/16 04:00 Pulse Ox 91 L 10/29/16 04:00 Intake & Output 10/28/16 10/29/16 10/29/16 18:59 06:59 18:59 Intake Total 1000 827.438 Output Total 600 1600 Balance 400 -772.562 Weight 146.6 kg Intake: IV 500 40 Sodium Chloride 0.9% 1, 500 40 000 ml @ 20 mls/hr IV . Q24H [facility] Rx#:[id number] Intake, IV Titration 500 787.438 Amount Heparin Sodium,Porcine/ 500 787.438 D5w Pmx 25,000 unit In Dextrose/Water 1 500ml. bag @ 16.9 UNITS/KG/HR 45 .99 mls/hr IV .[id number] [facility] Rx#:[id number] Output: Urine 600 1600 Other: Voiding Method Urinal Urinal # Voids 0 - Exam General appearance: mild distress, morbidly obese - EENT Eyes: anicteric sclerae, EOMI, PERRLA, no ptosis, no scleral icterus, normal appearance ENT: NA/AT, normal oropharynx, no thrush, no tonsillar exudates Ears: bilateral: normal - Neck Neck: no lymphadenopathy, normal ROM, no rigidity, no stridor, no thyromegaly Carotids: bilateral: upstroke normal Thyroid: bilateral: normal size - Respiratory Respiratory: bilateral: diminished, negative: dullness, rales, rhonchi, wheezing - Cardiovascular Rhythm: regular Heart sounds: normal: S1, S2 Abnormal Heart Sounds: systolic murmur, no rub, S3 Gallop, no S4 Gallop, no click - Gastrointestinal General gastrointestinal: normal bowel sounds, soft, no splenomegaly, no tenderness, no umbilical hernia, no ventral hernia - Integumentary Integumentary: normal, normal turgor - Neurologic Neurologic: CNII-XII intact - Musculoskeletal Musculoskeletal: generalized weakness, strength equal bilaterally - Psychiatric Psychiatric: A&O x's 3, appropriate affect, intact judgment & insight - Labs CBC & Chem 7: 10/29/16 04:33 10/29/16 04:33 Labs: Abnormal Lab Results - Last 24 Hours (Table) 10/29/16 10/29/16 10/29/16 Range/Units 04:33 04:33 04:33 Hgb 12.7 L (13.0-17.5) gm/dL Hct 37.7 L (39.0-53.0) % RDW 15.9 H (11.5-15.5) % Plt Count 133 L (150-450) k/uL APTT 54.7 H (22.0-30.0) sec Glucose 119 H (74-99) mg/dL Microbiology - Last 24 Hours (Table) 10/27/16 09:30 Blood Culture - Preliminary Blood No Growth after 24 hours Assessment and Plan Plan: 1. Bilateral saddle pulmonary emboli with left popliteal DVT. 12-lead EKG showed right ventricular strain pattern, Echocardiogram report is pending, patient was seen in consultation by Dr. Kee from pulmonary and critical care medicine it was felt that the patient did not need to be on t-PA at this point in time since he was hemodynamically stable. Heparin drip discontinued and patient started on eliquis. Transfer to [facility].. 2. Hypertension and hypertensive cardio vascular disease. Continue patient on only losartan 50 mg daily. 3. Chronic pain syndrome. Continue patient on MSIR 15 mg orally 3 times every day. 4. 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 Continue patient on gabapentin 400 mg orally 3 times every day. 5. Obesity with obstructive sleep apnea and obesity hypoventilation syndrome. Patient will need to go for a polysomnogram as an outpatient. 6. COPD and mild persistent asthma. Start the patient on Symbicort 160/4.5 g 2 puff inhalation twice every day, continue DuoNeb 3 mL nebulization 4 times every day, continue oxygen support at 4 L nasal cannula. 7. Elevated liver function test. Thought to be due to fatty filtration of the liver and possible narcotics. 8. Acute kidney injury and top of possible chronic disease stage II. IV fluid resuscitation, monitor the patient CMP, magnesium, phosphorus the next 24 hours , monitor for contrast nephropathy. 9. DVT prophylaxis. Currently on heparin drip. 10. GI prophylaxis. Start the patient on Protonix 40 mg IV push every 24 hours. 11. Patient is full code. Discharge plan: Return home Impression and plan of care have been directed as dictated by the signing physician. Deepika Brandon nurse practitioner acting as scribe for signing physician.
--- NOTE | 2016-10-29 13:39 | P.PN ---
Subjective A very pleasant 56-year-old obese male patient with known history of chronic degenerative arthritis involving the back and large joints/hips/knees was been bleeding essentially incidentally lifestyle. The patient also has a positive family history for pulmonary embolism as his father was diagnosed having PE and he also had an underlying multiple myeloma. The patient was in a good state of health in approximately 5 days ago when he acutely started getting short of breath and he progressively got worse to the point where he was getting short of breath with limited amount of activity and sometimes even at rest. No hemoptysis. No pleurisy. No chest pain.No calf pain. He had swelling in lower extremities bilaterally. He was concerned and for that reason he came into the hospital with a CT angios the chest was done and it showed bilateral pulmonary embolism And the CAT scan showed a saddle embolism nonocclusive centrally but there was many subsegmental pulmonary emboli bilaterally and segmental emboli each lobe of the lung. There was evidence of any active mediastinal lymphadenopathy. Scattered areas of groundglass opacity within the lung/atelectasis/early infarct. There was a right ventricular strain pattern on the CT angios the chest and for that reason a stat echocardiogram was done that showed a preserved LV function with a PA pressures in the mid 40s and dilation of the right ventricle. The patient was started on IV heparin. He remains hemodynamically stable. In fact his systolic blood pressures in the 140s. He is slightly tachycardic and he is in sinus tachycardia with a heart rate of 105. He is on 42 of oxygen nasal cannula and his pulse is around 95%. Denies having any recent surgery. No orthopedic surgery. No trauma. No malignancy. No personal history of DVT or pulmonary embolism. No change in mental status. No syncope. He has clinical features of obstructive sleep apnea although this has not been diagnosed officially. On 10/28/2016 the patient remains in intensive care unit. The patient on IV heparin. Clinically improved compared to yesterday. He is coughing out minimal amount of blood-tinged sputum. Hemodynamically stable. Less short of breath. In fact there is no shortness of breath at rest. No tachycardia. Hemodynamically stable. Producing adequate amount of urine output. The venous Doppler showed a DVT in the left popliteal vein. On June 28 1016 I'm seeing this patient in follow-up. The patient is doing well. The patient is not having any major respiratory distress. The patient will be started on Eliquis today 10 mg by mouth twice a day. The patient is also on IV heparin and will be discontinued. Hemodynamically stable. I've noted some further drop in the platelet count down to 130. The hemoglobin remains stable. Objective - Vital Signs Vital signs: Vital Signs Temp 96.4 F L 10/29/16 12:00 Pulse 104 H 10/29/16 13:27 Resp 22 10/29/16 12:00 BP 136/77 10/29/16 12:00 Pulse Ox 93 L 10/29/16 12:00 Intake & Output 10/28/16 10/29/16 10/29/16 18:59 06:59 18:59 Intake Total 1000 827.438 420 Output Total 600 1600 Balance 400 -772.562 420 Weight 146.6 kg Intake: IV 500 40 240 Sodium Chloride 0.9% 1, 500 40 240 000 ml @ 20 mls/hr IV . Q24H [facility] Rx#:[id number] Intake, IV Titration 500 787.438 Amount Heparin Sodium,Porcine/ 500 787.438 D5w Pmx 25,000 unit In Dextrose/Water 1 500ml. bag @ 16.9 UNITS/KG/HR 45 .99 mls/hr IV .[id number] [facility] Rx#:[id number] Oral 180 Output: Urine 600 1600 Other: Voiding Method Urinal Urinal Urinal # Voids 0 # Bowel Movements 0 - Exam Obese, comfortable likely distress.Head exam was generally normal. There was no scleral icterus or corneal arcus. Mucous membranes were moist. Neck is short and supple and the patient has significant crowding of the posterior oropharynx with a Mallampati class IV. No goiter or neck masses. Lungs sounds are diminished in lung bases otherwise clear. Breath sounds are equal and symmetrical bilaterally.Cardiac exam revealed the PMI to be normally situated and sized. The rhythm was regular and no extrasystoles were noted during several minutes of auscultation. The first and second heart sounds were normal and physiologic splitting of the second heart sound was noted. There were no murmurs, rubs, clicks, or gallops. Abdomen soft nontender. No direct tenderness rebound tensile guarding. Extremities reveal +1 edema and there is no cyanosis or clubbing. No calf tenderness. No open wounds or sores. Neurologically, the patient is awake and alert. - Labs CBC & Chem 7: 10/29/16 04:33 10/29/16 04:33 Labs: Abnormal Lab Results - Last 24 Hours (Table) 10/29/16 10/29/16 10/29/16 Range/Units 04:33 04:33 04:33 Hgb 12.7 L (13.0-17.5) gm/dL Hct 37.7 L (39.0-53.0) % RDW 15.9 H (11.5-15.5) % Plt Count 133 L (150-450) k/uL APTT 54.7 H (22.0-30.0) sec Glucose 119 H (74-99) mg/dL Microbiology - Last 24 Hours (Table) 10/27/16 09:30 Blood Culture - Preliminary Blood No Growth after 48 hours Assessment and Plan Plan: Assessment 1 acute bilateral pulmonary embolism. The patient has unprovoked pulmonary embolism and his main risk factor is positive family history and sedentary lifestyle. The patient had a CT angios the chest that showed segmental and subsegmental pulmonary artery occlusions bilaterally and there was a nonocclusive saddle embolus. There is evidence of moderate degree of pulmonary hypertension. PA pressures based on echocardiogram the mid 40s. Nevertheless, the patient is on oxygen at 4 L and is oxygenating well for the time being. No significant tachycardia. No hemodynamic instability and his blood pressure is well maintained. On 10/28/2016 the patient on IV heparin. Clinically much improved. Hemodynamically stable. Less short of breath. He is having minimal amount of hemoptysis/blood-tinged sputum probably due to an underlying pulmonary infarcts. We'll continue him with anticoagulation for now. The patient was confirmed to have a DVT of the left lower extremity/popliteal vein On 10/29/2016 the patient is clinically stable. The patient will be started on oral anticoagulation. IV heparin will be discontinued and the patient will be moved out of the intensive care unit. 2 obesity 3 sedentary lifestyle 4 positive family history of pulmonary embolism 5 hypertension 6 COPD/bronchial asthma 7 degenerative arthritis with chronic back pain and difficulty with mobility and gait 8 acute kidney injury recovered and the patient's creatinine is down to 1.1. 9 left popliteal vein DVT. Plan Stop the IV heparin and start the patient on oral anticoagulation oral anticoagulants, prefer Eliquis. Hemodynamically stable. Echocardiogram was noted. The patient was moved out of the intensive care unit. Possible discharge home in a.m. Outpatient follow-up regarding possibility of sleep breathing disorder/obstructive sleep apnea.
--- NOTE | 2016-10-29 14:29 | P.PN ---
Subjective Principal diagnosis: Pulmonary embolism This is a pleasant 56-year-old gentleman with prior history of hypertension, left ventricular hypertrophy, obesity, spondylosis, COPD and asthma, who presented to the hospital with symptoms of chest pain with associated shortness of breath. Patient underwent a CT of the chest with contrast which was positive for bilateral sagittal pulmonary embolism. He was initiated now on Eliquis. Patient is now being followed on the telemetry unit. Doing well overall. Denies any shortness of breath. Hemodynamically stable. Platelet count 133, hemoglobin 12.7. Objective - Vital Signs Vital signs: Vital Signs Temp 96.4 F L 10/29/16 12:00 Pulse 104 H 10/29/16 13:27 Resp 22 10/29/16 12:00 BP 136/77 10/29/16 12:00 Pulse Ox 93 L 10/29/16 12:00 Intake & Output 10/28/16 10/29/16 10/29/16 18:59 06:59 18:59 Intake Total 1000 827.438 420 Output Total 600 1600 Balance 400 -772.562 420 Weight 146.6 kg Intake: IV 500 40 240 Sodium Chloride 0.9% 1, 500 40 240 000 ml @ 20 mls/hr IV . Q24H [facility] Rx#:[id number] Intake, IV Titration 500 787.438 Amount Heparin Sodium,Porcine/ 500 787.438 D5w Pmx 25,000 unit In Dextrose/Water 1 500ml. bag @ 16.9 UNITS/KG/HR 45 .99 mls/hr IV .[id number] [facility] Rx#:[id number] Oral 180 Output: Urine 600 1600 Other: Voiding Method Urinal Urinal Urinal # Voids 0 # Bowel Movements 0 - Exam PHYSICAL EXAMINATION: HEENT: [Head is atraumatic, normocephalic. Pupils equal, round. Neck is supple. There is no elevated jugular venous pressure.] HEART EXAMINATION: [Heart S1, S2 normal. No murmur or gallop heard.] CHEST EXAMINATION:[ Lungs are clear to auscultation and precussion. No chest wall tenderness is noted on palpation or with deep breathing.] ABDOMEN: [ Soft, nontender. Bowel sounds are heard. No organomegaly noted]. EXTREMITIES:[ 2+ peripheral pulses with no evidence of peripheral edema and no calf tenderness noted]. NEUROLOGIC [patient is awake, alert and oriented -3.] . - Labs CBC & Chem 7: 10/29/16 04:33 10/29/16 04:33 Labs: Abnormal Lab Results - Last 24 Hours (Table) 10/29/16 10/29/16 10/29/16 Range/Units 04:33 04:33 04:33 Hgb 12.7 L (13.0-17.5) gm/dL Hct 37.7 L (39.0-53.0) % RDW 15.9 H (11.5-15.5) % Plt Count 133 L (150-450) k/uL APTT 54.7 H (22.0-30.0) sec Glucose 119 H (74-99) mg/dL Microbiology - Last 24 Hours (Table) 10/27/16 09:30 Blood Culture - Preliminary Blood No Growth after 48 hours Assessment and Plan (1) Bilateral pulmonary embolism Status: Acute (2) Obesity Status: Acute (3) HTN (hypertension) Status: Acute (4) Acute kidney failure Status: Acute (5) HTN (hypertension) Status: Acute (6) DVT (deep venous thrombosis) Status: Acute (7) COPD (chronic obstructive pulmonary disease) Status: Acute Plan: From cardiology's perspective, we will add a low-dose of beta chi for more optimal heart rate control. We will follow this patient with you now on an as- needed basis only, please don't hesitate to call with any questions. DNP note has been reviewed, I agree with a documented findings and plan of care. Patient was seen and examined.
[2016-10-29] MEDS: METOPROLOL TARTRATE 25 MG TAB PO SCH (20:15)
[2016-10-29] MEDS: GABAPENTIN 400 MG CAP PO PRN (20:15)
[2016-10-30] MEDS: MORPHINE SULFATE IR 15 MG TABLET PO PRN ×2 (06:29→14:42)
[2016-10-30 06:46] LABS: CH 29.7; HCT 41.5 % (39.0-53.0); HGB 13.5 gm/dL (13.0-17.5); MCH 28.5 pg (25.0-35.0); MCHC 32.5 g/dL (31.0-37.0); MCV 87.7 fL (80.0-100.0); Mean Platelet Volume 9.4; RBC 4.73 m/uL (4.30-5.90); RDW 15.6 % (11.5-15.5); WBC 8.1 k/uL (3.8-10.6)
[2016-10-30 06:54] LABS: Anion Gap 9 mmol/L; Blood Urea Nitrogen 16 mg/dL (9-20); Calcium 9.2 mg/dL (8.4-10.2); Carbon Dioxide 24 mmol/L (22-30); Chloride 106 mmol/L (98-107); Glucose 101 mg/dL (74-99); Magnesium 2.4 mg/dL (1.6-2.3); Non-African American GFR(MDRD) >60 (>60 ml/min/1.73 sqM); Phosphorous 3.4 mg/dL (2.5-4.5); Potassium 4.4 mmol/L (3.5-5.1); Sodium 139 mmol/L (137-145)
[2016-10-30] MEDS ORDERED: PANTOPRAZOLE 40 MG TABLET PO SCH (07:30)
[2016-10-30] MEDS: SYMBICORT 160-4.5 MCG INHALER INHALATION SCH (07:42)
[2016-10-30] MEDS: IPRATROPIUM-ALBUTEROL 3 ML NEB INHALATION SCH ×3 (07:43→15:51)
[2016-10-30] MEDS: ASPIRIN 81 MG CHEW PO SCH (08:17)
[2016-10-30] MEDS: LOSARTAN 50 MG TAB PO SCH (08:17)
[2016-10-30] MEDS: APIXABAN 5 MG TAB PO SCH (08:17)
[2016-10-30] MEDS: GABAPENTIN 400 MG CAP PO PRN (08:17)
[2016-10-30] MEDS: METOPROLOL TARTRATE 25 MG TAB PO SCH (08:17)
[2016-10-30 08:20] VITALS: RESP 20
--- NOTE | 2016-10-30 09:20 | XR ---
EXAMINATION TYPE: XR chest 1V DATE OF EXAM: 10/30/2016 CLINICAL HISTORY: Difficulty breathing progress study. TECHNIQUE: Single AP portable upright view of the chest is obtained. COMPARISON: Chest x-ray from one day earlier FINDINGS: Lungs remain clear without pleural effusion or pneumothorax seen bilaterally. The cardiac silhouette size is stable and upper limits of normal. The osseous structures are intact. IMPRESSION: Overall stable findings, no acute pulmonary process identified.
--- NOTE | 2016-10-30 11:58 | P.DS ---
Providers Date of admission: 10/27/16 13:24 Expected date of discharge: 10/30/16 Attending physician: Kolton Zepeda Consults: 10/27/16 13:24 Consult Physician Stat Consulting Provider: Yara Kee Consult Reason/Comments: Pulmonary embolism Do you want consulting provider notified?: Already Contacted Primary care physician: Harry Crooks [facility] Course: This is a 56-year-old male one of Dr. 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 Crooks's office because of increased chest pain associated with increased shortness breath walking a few steps on patient had an EKG Dr. Crooks's office that showed right ventricular strain pattern was sent to the ER for evaluation his d-dimer came back elevated he ended up going for computed tomography scan of the chest with contrast that was positive for bilateral saddle pulmonary emboli, he was seen in consultation by Dr. Kee from critical care and pulmonary medicine, he had an Echocardiogram and EKG at the bedside there is significant right ventricular strain pattern on EKG however the echocardiogram was still pending at the time of dictation, patient stated that he was in his usual state of health about last when he was getting out and walking around loaded and he suddenly developed to have a severe chest pain associated with pleurisy not able to walk a few steps he did not do anything about it he ended up going back home he stated lipase without any relief patient apparently was seen recently by Dr. Thompson for his COPD/asthma he was placed on Symbicort 160/4.5 g 2 puffs inhalation twice every day along with Combivent Respimat 2 puffs inhal QID and patient when he did use it recently he felt a lot worse he ended up coming to the hospital as I stated above and he was seen in the ER and he was admitted to the intensive care unit for evaluation and treatment. Of notice patient was seen by hematology oncology in June 2016 and he ended up going for a computed tomography scan of the chest that was negative for acute of normalities because of hemoptysis that he developed. 10/28: Patient remains in the intensive care unit. He is on a heparin drip. Blood pressure is on the lower side and blood pressure medications have been adjusted. He states he is breathing easier today from yesterday. He also states his abdomen is less bloated from yesterday. Ultrasound of lower extremity was positive for popliteal DVT on the left. Patient will be transferred to [facility] care later this afternoon. He is followed by Dr. Kee for intensive care/pulmonary management. 10/29: Cardiology has evaluated the patient and is now following on an as-needed basis. Repeat chest x-ray shows no acute cardiopulmonary process. Heparin drip is off and eliquis started. Patient is been transferred out of ICU to [facility] care today. Breathing status is stable. 10/30: Patient was started on eliquis yesterday and coupons have been provided by case management to cover his cost. Patient states he walked down the hallway and back and he was a little bit of shortness of breath but much improved from when he presented initially. Patient will be discharged home today in stable condition. Discharge diagnoses: 1. Bilateral saddle pulmonary emboli with left popliteal DVT. 2. Hypertension and hypertensive cardio vascular disease. 3. Chronic pain syndrome. 4. 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 5. Obesity with obstructive sleep apnea and obesity hypoventilation syndrome. 6. COPD and mild persistent asthma. 7. Elevated liver function test. Thought to be due to fatty filtration of the liver and possible narcotics. 8. Acute kidney injury and top of possible chronic disease stage II. Discharge plan: Return home Impression and plan of care have been directed as dictated by the signing physician. Deepika Brandon nurse practitioner acting as scribe for signing physician. CC: Dr. Harry Crooks Patient Condition at Discharge: Good Plan - Discharge Summary New Discharge Prescriptions: New Losartan [Cozaar] 50 mg PO DAILY #30 tab Metoprolol Tartrate [Lopressor] 25 mg PO BID #60 tab Pantoprazole [Protonix] 40 mg PO AC-BRKFST #30 tab Apixaban [Eliquis] 10 mg PO BID #14 tab Apixaban [Eliquis] 5 mg PO BID #60 tablet Continue Furosemide [Lasix] 20 mg PO DAILY Gabapentin [Neurontin] 400 mg PO TID PRN PRN Reason: Pain Morphine Sulfate Ir [MSIR] 15 mg PO TID PRN PRN Reason: Pain Ipratropium/Albuterol Sulfate [Combivent Respimat Inhaler] 1 puff INHALATION QID PRN PRN Reason: Shortness Of Breath Budesonide-Formot 160-4.5 Mcg [Symbicort 160-4.5 Mcg Inhaler] 2 puff INHALATION RT-DAILY Aspirin EC [Ecotrin Low Dose] 81 mg PO DAILY Discontinued Olmesartan/Amlodipin/Hcthiazid [Tribenzor 40-10-25 mg Tablet] 1 tab PO DAILY Discharge Medication List Furosemide [Lasix] 20 mg PO DAILY 07/29/16 [History] Gabapentin [Neurontin] 400 mg PO TID PRN 08/10/16 [History] Aspirin EC [Ecotrin Low Dose] 81 mg PO DAILY 10/27/16 [History] Budesonide-Formot 160-4.5 Mcg [Symbicort 160-4.5 Mcg Inhaler] 2 puff INHALATION RT-DAILY 10/27/16 [History] Ipratropium/Albuterol Sulfate [Combivent Respimat Inhaler] 1 puff INHALATION QID PRN 10/27/16 [History] Morphine Sulfate Ir [MSIR] 15 mg PO TID PRN 10/27/16 [History] Apixaban [Eliquis] 5 mg PO BID #60 tablet 10/30/16 [Rx] Apixaban [Eliquis] 10 mg PO BID #14 tab 10/30/16 [Rx] Losartan [Cozaar] 50 mg PO DAILY #30 tab 10/30/16 [Rx] Metoprolol Tartrate [Lopressor] 25 mg PO BID #60 tab 10/30/16 [Rx] Pantoprazole [Protonix] 40 mg PO AC-BRKFST #30 tab 10/30/16 [Rx] Follow up Appointment(s)/Referral(s): Suresh Chavez MD [STAFF PHYSICIAN] - 6 Weeks (LEFT MESSAGE WITH [facility]. OFFICES WILL CALL WITH A FOLLOW UP APPOINTMENT DATE AND TIME.) Harry Crooks DO [Primary Care Provider] - 1 Week (OFFICES WILL CALL WITH AN APPOINTMENT DATE AND TIME.) Yara Kee MD [STAFF PHYSICIAN] - 11/24/16 10:15 am Patient Instructions/Handouts: Pulmonary Embolism (DC), Deep Venous Thrombosis (DC), Safe Use of Anticoagulants (DC) Activity/Diet/Wound Care/Special Instructions: Start Eliquis 10mg twice daily for 7 days, then 5 mg twice daily. Discharge Disposition: HOME SELF-CARE
[2016-10-30 15:34] VITALS: BP 110/82; PULSE 65; TEMP 97
--- NOTE | 2016-10-30 18:26 | P.PN ---
Subjective A very pleasant 56-year-old obese male patient with known history of chronic degenerative arthritis involving the back and large joints/hips/knees was been bleeding essentially incidentally lifestyle. The patient also has a positive family history for pulmonary embolism as his father was diagnosed having PE and he also had an underlying multiple myeloma. The patient was in a good state of health in approximately 5 days ago when he acutely started getting short of breath and he progressively got worse to the point where he was getting short of breath with limited amount of activity and sometimes even at rest. No hemoptysis. No pleurisy. No chest pain.No calf pain. He had swelling in lower extremities bilaterally. He was concerned and for that reason he came into the hospital with a CT angios the chest was done and it showed bilateral pulmonary embolism And the CAT scan showed a saddle embolism nonocclusive centrally but there was many subsegmental pulmonary emboli bilaterally and segmental emboli each lobe of the lung. There was evidence of any active mediastinal lymphadenopathy. Scattered areas of groundglass opacity within the lung/atelectasis/early infarct. There was a right ventricular strain pattern on the CT angios the chest and for that reason a stat echocardiogram was done that showed a preserved LV function with a PA pressures in the mid 40s and dilation of the right ventricle. The patient was started on IV heparin. He remains hemodynamically stable. In fact his systolic blood pressures in the 140s. He is slightly tachycardic and he is in sinus tachycardia with a heart rate of 105. He is on 42 of oxygen nasal cannula and his pulse is around 95%. Denies having any recent surgery. No orthopedic surgery. No trauma. No malignancy. No personal history of DVT or pulmonary embolism. No change in mental status. No syncope. He has clinical features of obstructive sleep apnea although this has not been diagnosed officially. On 10/28/2016 the patient remains in intensive care unit. The patient on IV heparin. Clinically improved compared to yesterday. He is coughing out minimal amount of blood-tinged sputum. Hemodynamically stable. Less short of breath. In fact there is no shortness of breath at rest. No tachycardia. Hemodynamically stable. Producing adequate amount of urine output. The venous Doppler showed a DVT in the left popliteal vein. On June 28 1016 I'm seeing this patient in follow-up. The patient is doing well. The patient is not having any major respiratory distress. The patient will be started on Eliquis today 10 mg by mouth twice a day. The patient is also on IV heparin and will be discontinued. Hemodynamically stable. I've noted some further drop in the platelet count down to 130. The hemoglobin remains stable. On 10/30/2016, the patient is being seen in follow-up. Doing extremely well. Ambulating. No respiratory distress. No chest pain. No bleeding complications. No other complaints otherwise. The patient will be discharged home on oral Eliquis Objective - Vital Signs Vital signs: Vital Signs Temp 97.0 F L 10/30/16 15:32 Pulse 65 10/30/16 15:33 Resp 20 10/30/16 15:33 BP 110/82 10/30/16 15:32 Pulse Ox 92 L 10/30/16 15:32 Intake & Output 10/29/16 10/30/16 10/30/16 18:59 06:59 18:59 Intake Total 657 20 488 Output Total 425 Balance 657 20 63 Weight 144.8 kg Intake: IV 240 20 10 0.9%NSFLUSH 20 10 Sodium Chloride 0.9% 1, 240 000 ml @ 20 mls/hr IV . Q24H [facility] Rx#:[id number] Oral 417 478 Output: Urine 425 Other: Voiding Method Urinal Urinal Urinal # Voids 1 # Bowel Movements 0 - Exam Obese, comfortable likely distress.Head exam was generally normal. There was no scleral icterus or corneal arcus. Mucous membranes were moist. Neck is short and supple and the patient has significant crowding of the posterior oropharynx with a Mallampati class IV. No goiter or neck masses. Lungs sounds are diminished in lung bases otherwise clear. Breath sounds are equal and symmetrical bilaterally.Cardiac exam revealed the PMI to be normally situated and sized. The rhythm was regular and no extrasystoles were noted during several minutes of auscultation. The first and second heart sounds were normal and physiologic splitting of the second heart sound was noted. There were no murmurs, rubs, clicks, or gallops. Abdomen soft nontender. No direct tenderness rebound tensile guarding. Extremities reveal +1 edema and there is no cyanosis or clubbing. No calf tenderness. No open wounds or sores. Neurologically, the patient is awake and alert. - Labs CBC & Chem 7: 10/30/16 06:09 10/30/16 06:09 Labs: Abnormal Lab Results - Last 24 Hours (Table) 10/30/16 10/30/16 Range/Units 06:09 06:09 RDW 15.6 H (11.5-15.5) % Plt Count 143 L (150-450) k/uL Glucose 101 H (74-99) mg/dL Magnesium 2.4 H (1.6-2.3) mg/dL Microbiology - Last 24 Hours (Table) 10/27/16 09:30 Blood Culture - Preliminary Blood No Growth after 72 hours Assessment and Plan Plan: Assessment 1 acute bilateral pulmonary embolism. The patient has unprovoked pulmonary embolism and his main risk factor is positive family history and sedentary lifestyle. The patient had a CT angios the chest that showed segmental and subsegmental pulmonary artery occlusions bilaterally and there was a nonocclusive saddle embolus. There is evidence of moderate degree of pulmonary hypertension. PA pressures based on echocardiogram the mid 40s. Nevertheless, the patient is on oxygen at 4 L and is oxygenating well for the time being. No significant tachycardia. No hemodynamic instability and his blood pressure is well maintained. On 10/28/2016 the patient on IV heparin. Clinically much improved. Hemodynamically stable. Less short of breath. He is having minimal amount of hemoptysis/blood-tinged sputum probably due to an underlying pulmonary infarcts. We'll continue him with anticoagulation for now. The patient was confirmed to have a DVT of the left lower extremity/popliteal vein On 10/29/2016 the patient is clinically stable. The patient will be started on oral anticoagulation. IV heparin will be discontinued and the patient will be moved out of the intensive care unit. On 10/30/2016, the patient is stable. The patient on oral anticoagulation. The patient is being considered to be discharged home. The plated count is stable. 2 obesity 3 sedentary lifestyle 4 positive family history of pulmonary embolism 5 hypertension 6 COPD/bronchial asthma 7 degenerative arthritis with chronic back pain and difficulty with mobility and gait 8 acute kidney injury recovered and the patient's creatinine is down to 1.1. 9 left popliteal vein DVT. Plan Discharge this patient home on Eliquis. The appropriate recommendations were given. The patient was seen in the office in 2-3 weeks time. A sleep evaluation will be done outpatient basis. His condition is stable for now. Clear for discharge.
== END 2016-10-30 16:44 | disposition home or self-care (01) | DRG 176 ==
LOC: EC 09:10 → 6ICU 13:24 → 6SEL 10-29 11:32
PROVIDERS: ADMIT Internal Medicine; ATTEND Internal Medicine
DX: I26.92 Saddle embolus of pulmonary artery without acute cor pulmonale (principal); E66.2 Morbid (severe) obesity with alveolar hypoventilation; Z68.41 Body mass index [BMI] 40.0-44.9, adult; I82.432 Acute embolism and thrombosis of left popliteal vein; I27.2 Other secondary pulmonary hypertension; I13.10 Hypertensive heart and chronic kidney disease without heart failure, with stage 1 through stage 4 chronic kidney disease, or unspecified chronic kidney disease; N18.2 Chronic kidney disease, stage 2 (mild); G47.33 Obstructive sleep apnea (adult) (pediatric); M16.0 Bilateral primary osteoarthritis of hip; M17.0 Bilateral primary osteoarthritis of knee; E78.5 Hyperlipidemia, unspecified; M47.816 Spondylosis without myelopathy or radiculopathy, lumbar region; G57.93 Unspecified mononeuropathy of bilateral lower limbs; J44.9 Chronic obstructive pulmonary disease, unspecified; J45.30 Mild persistent asthma, uncomplicated; M51.36 Other intervertebral disc degeneration, lumbar region; G89.4 Chronic pain syndrome; Z79.82 Long term (current) use of aspirin; Z79.51 Long term (current) use of inhaled steroids; Z79.899 Other long term (current) drug therapy; Z86.59 Personal history of other mental and behavioral disorders; Z87.891 Personal history of nicotine dependence
CPT/HCPCS: 36415; 71010; 71020; 71275; 80048; 80053; 82550; 82553; 83735; 83880; 84100; 84484; 85025; 85027; 85379; 85610; 85730; 87040; 93005; 93306; 93970; 94640; 96365; 96366; 96375; 96376; 99291

== ENCOUNTER → 2018-06-13 | Outpatient (CLI) | payer BC ==
--- NOTE | 2018-06-15 13:00 | P.ARTDOP ---
Arterial Doppler LOWER EXTREMITY ARTERIAL DOPPLER: DATE OF SERVICE: 06/13/2018 Reason for study: Claudication. Doppler waveforms: Multiphasic bilaterally throughout. Pulse volume recording: Normal configuration. Pressure gradients: None. Ankle-brachial indices: Greater than 1 bilaterally. Toe pressures: [] on the right, [] on the left Impression: Normal study.
== END | disposition home or self-care (01) ==
LOC: RADUSWWP 12:03
PROVIDERS: ATTEND Family Medicine
DX: I70.213 Atherosclerosis of native arteries of extremities with intermittent claudication, bilateral legs (principal)
CPT/HCPCS: 93923

== ENCOUNTER → 2018-09-06 | Outpatient (CLI) | payer BC ==
[2018-09-06 17:53] LABS: African American GFR (CKD) 75.7 (60.0-200.0)
== END | disposition home or self-care (01) ==
LOC: LABWHC1 08:44
PROVIDERS: ATTEND Family Medicine
DX: Z01.812 Encounter for preprocedural laboratory examination (principal)
CPT/HCPCS: 36415; 82565; 84520

== ENCOUNTER → 2018-10-08 | Outpatient (CLI) | payer BC ==
[2018-10-08 16:36] LABS: African American GFR (CKD) 75.7 (60.0-200.0)
== END | disposition home or self-care (01) ==
LOC: LABWHC1 08:10
PROVIDERS: ATTEND Internal Medicine Cardiovascular Disease
DX: R00.2 Palpitations (principal); R06.09 Other forms of dyspnea
CPT/HCPCS: 36415; 82565; 84520

== ENCOUNTER → 2022-05-28 | Outpatient (CLI) | payer MEDICARE ==
--- NOTE | 2022-05-28 12:41 | XR ---
EXAMINATION TYPE: XR chest 2V DATE OF EXAM: 05/28/2022 11:35 AM COMPARISON: Chest radiographs from 10/30/2016 TECHNIQUE: XR chest 2V Frontal and lateral views of the chest. CLINICAL INDICATION:Male, 61 years old with history of R07.9 chest pain; FINDINGS: Lungs/Pleura: There is no evidence of pleural effusion, focal consolidation, or pneumothorax. Pulmonary vascularity: Unremarkable. Heart/mediastinum: Cardiomediastinal silhouette is unremarkable. Musculoskeletal: No acute osseous pathology. IMPRESSION: No acute cardiopulmonary disease/process.
== END | disposition home or self-care (01) ==
LOC: RADXRMAIN 11:25
PROVIDERS: ATTEND Family Medicine
DX: J44.9 Chronic obstructive pulmonary disease, unspecified (principal)
CPT/HCPCS: 71046

== ENCOUNTER → 2023-06-11 | Day surgery (SDC) | payer MEDICARE ==
[2023-06-08 15:52] VITALS: BMI 43.0
[~2023-06-11] MED LIST changes: -ALBUTEROL NEB (CONC) 2.5 MG/0.5 ML INHALATION ONE; -ATROPINE SULFATE 0.4 MG/ML 1 ML VIAL IM ONE; +HYDROmorphone 0.5 MG/0.5 ML SYRINGE IVP PRN; -LACTATED RINGERS 1,000 ML IV ONE; -LACTATED RINGERS 1,000 ML IV SCH; +LIDOCAINE 1% INJ 10MG/ML (20 ML MDV) ONE; -LIDOCAINE 2% (PF) 20 MG/ML 10ML INHALATION ONE; +MIDAZOLAM 2 MG/2 ML VIAL IV PRN; +MIDAZOLAM 2 MG/2 ML VIAL ONE; +PHENYLEPHRINE 10 MG/ML VIAL ONE; +PROPOFOL 10 MG/ML 20 ML VIAL IV ONE; +SCOPOLAMINE 1 MG/72 HR PATCH TRANSDERM ONE; +SUCCINYLCHOLINE CHLORIDE 200 MG/10 ML VIAL IV ONE; +ePHEDrine 50 MG/ML 1 ML VIAL ONE; +fentaNYL (PF) 50 MCG/ML 2 ML AMP ONE
[2023-06-11] MEDS: LACTATED RINGERS 1,000 ML IV SCH (09:16)
[2023-06-11 09:23] LABS: Glucose,Whole Blood 110 mg/dL (70-110)
[2023-06-11] MEDS: DEXAMETHASONE SOD PHOSPHATE 4 MG/ML 1 ML VIAL IV ONE (09:28)
[2023-06-11] MEDS: ACETAMINOPHEN TAB 500 MG TAB PO PRN (09:28)
[2023-06-11] MEDS: ONDANSETRON 4 MG/2 ML VIAL IVP ONE (09:28)
[2023-06-11] MEDS: HEPARIN SODIUM,PORCINE 5,000 UNIT/ML 1 ML VIAL SQ PRN (09:29)
[2023-06-11] MEDS: BUPIVACAINE (PF) 0.25% 30 ML VIAL SQ ONE ×2 (10:18→10:43)
[2023-06-11] MEDS: SODIUM CHLORIDE 0.9% 100 ML with ceFAZolin 2,000 MG IV ONE (10:20)
--- NOTE | 2023-06-11 11:18 | P.OP ---
Date of Procedure: 06/11/23 Procedure(s) Performed: PREOPERATIVE DIAGNOSIS: Upper back sebaceous cyst x 2, colon cancer screening POSTOPERATIVE DIAGNOSIS: Same, colon polyp PROCEDURE: Excision upper back sebaceous cyst x 2 with intermediate closure, colonoscopy with snare polypectomy SURGEON: Rosamaria CROFT: Gretchen garcia ANESTHESIA: General COMPLICATIONS: None OPERATIVE PROCEDURE: Patient was placed in the left cubitus position for the procedure. General anesthesia achieved. Sebaceous cyst right upper back and left upper back were addressed. Areas were prepped and draped sterilely. Elliptical incision made overlying each sebaceous cyst. These were fully excised sharply. Subcutaneous tissue was closed using 3-0 Vicryl sutures and skin closed using 4-0 nylon sutures. Sebaceous cyst on the right upper back measured 2.5 cm, left upper back 2.1 cm, length of intermediate closure 5 cm. Dressings were applied. The Olympus colonoscope was inserted into the anus and passed under direct visualization to the base of the cecum. The appendiceal orifice was visualized. From that point the scope was slowly withdrawn inspecting all surfaces carefully. There were no neoplastic inflammatory or polypoid lesions throughout the cecum or ascending colon. In the proximal transverse colon a larger polyp was noted. This was pedunculated and removed using the snare with cautery technique in 2 pieces. The remainder of the transverse descending sigmoid and rectum appeared normal. There was no visible diverticulosis. Digital rectal examination was normal. The patient was taken to the recovery room in stable condition per anesthesia guidelines. DISPOSITION: Stable to recovery room
[2023-06-11 11:34] VITALS: RESP 16; TEMP 97.3
[2023-06-11 12:39] LABS: Glucose,Whole Blood 137 mg/dL (70-110)
[2023-06-11 12:57] VITALS: BP 121/59; PULSE 91
== END ==
LOC: OR 08:40
PROVIDERS: ATTEND Surgery
DX: Z12.11 Encounter for screening for malignant neoplasm of colon (principal); D12.3 Benign neoplasm of transverse colon; L72.0 Epidermal cyst; I10 Essential (primary) hypertension; E78.5 Hyperlipidemia, unspecified; I25.10 Atherosclerotic heart disease of native coronary artery without angina pectoris; Z95.5 Presence of coronary angioplasty implant and graft; E66.9 Obesity, unspecified; Z68.42 Body mass index [BMI] 45.0-49.9, adult; J44.9 Chronic obstructive pulmonary disease, unspecified; G47.33 Obstructive sleep apnea (adult) (pediatric); F41.8 Other specified anxiety disorders; Z79.01 Long term (current) use of anticoagulants; Z79.51 Long term (current) use of inhaled steroids; Z79.899 Other long term (current) drug therapy; Z79.85 Long-term (current) use of injectable non-insulin antidiabetic drugs; Z88.6 Allergy status to analgesic agent; Z88.8 Allergy status to other drugs, medicaments and biological substances; Z87.891 Personal history of nicotine dependence
CPT/HCPCS: 88304; 45385; 11406; 12032; J2250; J0330; J1644; J1100; J2405; J0690; J2001; J3010; J2704; J2371; J0665; 88305

== ENCOUNTER → 2023-10-05 | Outpatient (CLI) | payer MEDICARE | END | disposition home or self-care (01) | LOC: LABPRL 09:45 | PROVIDERS: ATTEND Family Medicine | DX: R73.9 Hyperglycemia, unspecified (principal) | CPT/HCPCS: 83036 ==

== ENCOUNTER 2024-08-03 13:11 | Observation (INO) | payer MEDICARE ==
--- NOTE | 2024-08-03 14:13 | ED ---
General Adult HPI - General Chief complaint: GI Bleed Stated complaint: Coughing blood Time Seen by Provider: 08/03/24 13:20 Source: patient, RN notes reviewed, old records reviewed Mode of arrival: ambulatory Limitations: no limitations - History of Present Illness Initial comments: This is a 63-year-old male who presents to the emergency departmentEating that that he is on Eliquis for DVTs and blood clots in his lungs. Patient states that since Wednesday he has been coughing up blood and he continues to do so. Patient states he is cut his dose of Eliquis down in half so he is only taking it once a day. Patient states he was short of breath earlier in the week but he is not short of breath today. Patient denies any fever or chills. Patient de nies any significant increase swelling to his legs. - Related Data Home Medications Medication Instructions Recorded Confirmed Furosemide [Lasix] 20 mg PO DAILY 07/29/16 06/08/23 Budesonide-Formot 160-4.5 Mcg 2 puff INHALATION RT-DAILY 10/27/16 06/11/23 [Symbicort 160-4.5 Mcg Inhaler] Albuterol Inhaler [Ventolin Hfa 1 - 2 puff INHALATION Q6H PRN 06/08/23 06/08/23 Inhaler] Atorvastatin [Lipitor] 20 mg PO HS 06/08/23 06/08/23 Ibuprofen 800 mg PO Q8H PRN 06/08/23 06/08/23 Metoprolol Tartrate [Lopressor] 100 mg PO HS 06/08/23 06/08/23 Olmesartan/Amlodipin/Hcthiazid 1 each PO DAILY 06/08/23 06/11/23 [Olmesartan/Amlodipin/Hcthiazid 40-5-25 MG] Previous Rx's Medication Instructions Recorded Apixaban [Eliquis] 5 mg PO BID #60 tablet 10/30/16 Pantoprazole [Protonix] 40 mg PO AC-BRKFST #30 tab 10/30/16 Allergies Allergy/AdvReac Type Severity Reaction Status Date / Time tirzepatide [From Ras] AdvReac Nausea & Verified 08/03/24 17:36 Vomiting & Diarrhea tramadol AdvReac Chest Pain Verified 08/03/24 17:36 Review of Systems ROS Statement: Those systems with pertinent positive or pertinent negative responses have been documented in the HPI. ROS Other: All systems not noted in ROS Statement are negative. 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 MOTHER OF KIDNEY DISEASE AFTER RECEIVING HER NIMO'S DONOR KIDNEY. SHE WAS 75YRS OLD. Father Family Medical History: Cancer, Coronary Artery Disease (CAD), Sleep Apnea /CPAP/BIPAP Additional Family Medical History / Comment(s): MULTIPLE MYELOMA Brother(s) Family Medical History: Pulmonary Embolus (patient had 2 brothers one at and the other one was diagnosed with pulmonary embolism) Sister(s) Family Medical History: No Reported History (patient has 3 sisters no major medical problems.) Daughter(s) Family Medical History: No Reported History (patient has 2 daughters no major medical problems.) Son(s) Family Medical History: No Reported History (patient has one son no major medical problems.) General Exam - General Exam Comments Initial Comments: GENERAL: Patient is well-developed and well-nourished. Patient is nontoxic and well- hydrated and is in no acute distress. ENT: Neck is soft and supple. No significant lymphadenopathy is noted. Oropharynx is clear. Moist mucous membranes. Neck has full range of motion without alexis citing any pain. EYES: The sclera were anicteric and conjunctiva were pink and moist. Extraocular movements were intact and pupils were equal round and reactive to light. Eyelids were unremarkable. PULMONARY: Unlabored respirations. Good breath sounds bilaterally. No audible rales rhonchi or wheezing was noted. CARDIOVASCULAR: There is a regular rate and rhythm without any murmurs gallops or rubs. ABDOMEN: Soft and nontender with normal bowel sounds. SKIN: Skin is clear with no lesions or rashes and otherwise unremarkable. NEUROLOGIC: Patient is alert and oriented x3. Cranial nerves II through XII are grossly intact. Motor and sensory are also intact. Normal speech, volume and content. Symmetrical smile. MUSCULOSKELETAL: Normal extremities with adequate strength and full range of motion. No lower extremity swelling or edema. No calf tenderness. LYMPHATICS: No significant lymphadenopathy is noted PSYCHIATRIC: Normal psychiatric evaluation. Limitations: no limitations Course Vital Signs 08/03/24 08/03/24 08/03/24 13:14 13:45 15:00 Temperature 97.3 F L 98.2 F Pulse Rate 94 80 80 Respiratory 20 16 16 Rate Blood Pressure 151/76 132/59 100/58 O2 Sat by Pulse 96 94 L 95 Oximetry 08/03/24 17:00 Temperature Pulse Rate 64 Respiratory 15 Rate Blood Pressure 116/82 O2 Sat by Pulse 96 Oximetry Medical Decision Making - Medical Decision Making EKG is interpreted by myself and EKG shows a sinus rhythm at 64 bpm [place] 176 QRS 104 QT interval is 415 QTc is 424. Patient's EKG shows no ST segment elevation however there is T wave inversions in precordial leads V1 through V4. Was pt. sent in by a medical professional or institution (, [facility], [facility], urgent care, hospital, or assisted...) When possible be specific @ -No Did you speak to anyone other than the patient for history (EMS, parent, family, police, friend...)? What history was obtained from this source @ -No Did you review nursing and triage notes (agree or disagree)? Why? @ -I reviewed and agree with nursing and triage notes Were old charts reviewed (outside hosp., previous admission, EMS record, old EKG, old radiological studies, urgent care reports/EKG's, assisted records)? Report findings @ -No old charts were reviewed Differential Diagnosis? @ -Coagulopathy, PE, bronchial irritation, this is not an all-inclusive list EKG interpreted by me (3pts min.). @ -As above X-rays interpreted by me (1pt min.). @ -Chest x-ray shows no acute CT interpreted by me (1pt min.). @ -CT of the chest shows no PE U/S interpreted by me (1pt. min.). @ -None done What testing was considered but not performed or refused? (CT, X-rays, U/S, labs)? Why? @ -None What meds were considered but not given or refused? Why? @ -None Did you discuss the management of the patient with other professionals (professionals i.e. Dr., PA, [facility], lab, RT, psych nurse, social worker psychiatric, helmet hat brim cutter, teacher, parole hearing officer, keycase assembler)? Give summary @ -I spoke with Dr. Kee on multiple occasions he agreed that the patient should be admitted and he will be consulted. Was smoking cessation discussed for >3mins.? @ -No Was critical care preformed (if so, how long)? @ -No Were there social determinants of health that impacted care today? How? (Atilio elessness, low income, unemployed, alcoholism, drug addiction, transportation, low edu. Level, literacy, decrease access to med. care, shelter, rehab)? @ -No Was there de-escalation of care discussed even if they declined (Discuss DNR or withdrawal of care, Hospice)? DNR status @ -No What co-morbidities impacted this encounter? (DM, HTN, Smoking, COPD, CAD, Cancer, CVA, ARF, Chemo, Hep., AIDS, mental health diagnosis, sleep apnea, morbid obesity)? @ -None Was patient admitted / discharged? Hospital course, mention meds given and route, prescriptions, significant lab abnormalities, going to OR and other pertinent info. @ -Patient will be admitted for hemoptysis and Dr. Kee will be consulted. Patient will go back on his Eliquis Undiagnosed new problem with uncertain prognosis? @ -No Drug Therapy requiring intensive monitoring for toxicity (Heparin, Nitro, Insulin, Cardizem)? @ -No Were any procedures done? @ -No Diagnosis/symptom? @ -Hemoptysis Acute, or Chronic, or Acute on Chronic? @ -Acute Uncomplicated (without systemic symptoms) or Complicated (systemic symptoms)? @ -Complicated Side effects of treatment? @ -No Exacerbation, Progression, or Severe Exacerbation? @ -No Poses a threat to life or bodily function? How? (Chest pain, [place], [place], pneumonia, PE, COPD, DKA, ARF, appy, cholecystitis, CVA, Diverticulitis, Homicidal, Suicidal, threat to staff... and all critical care pts) @ -Yes this could lead to heavy bleeding and hypoxia. - Lab Data Result diagrams: 08/03/24 14:45 08/03/24 14:45 Lab Results 08/03/24 08/03/24 08/03/24 Range/Units 14:45 14:45 15:04 WBC 7.11 (4.50-10.00) 10*3/uL RBC 4.70 (4.40-5.60) 10*6/uL Hgb 13.9 (13.0-17.0) g/dL Hct 41.4 (39.6-50.0) % MCV 88.1 (80.0-97.0) fL MCH 29.6 (27.0-32.0) pg MCHC 33.6 (32.0-37.0) g/dL Plt Count 143 (140-440) 10*3/uL MPV 11.1 (9.5-12.2) fL Immature Gran % (Auto) 0.3 % Neutrophils % 71.5 % Lymphocytes % 20.8 % Monocytes % 5.8 % Eosinophils % 1.0 % Basophils % 0.6 % Immature Gran # 0.02 (0.00-0.04) 10*3/uL Neutrophils # 5.09 (1.80-7.70) 10*3/uL Lymphocytes # 1.48 (0.90-5.00) 10*3/uL Monocytes # 0.41 (0.20-1.00) 10*3/uL Eosinophils # 0.07 (0.04-0.35) 10*3/uL Basophils # 0.04 (0.00-0.10) 10*3/uL Immature Plt Fraction 4.9 (1.1-6.1) % PT 11.1 (10.0-12.5) sec INR 1.0 (<1.2) APTT 23.9 (22.0-30.0) sec Sodium 142 (137-145) mmol/L Potassium 3.4 L (3.5-5.1) mmol/L Chloride 102 (98-107) mmol/L Carbon Dioxide 30 (22-30) mmol/L Anion Gap 10 mmol/L BUN 19 (9-20) mg/dL Creatinine 1.21 (0.66-1.25) mg/dL Est GFR (CKD-EPI)AfAm 72 (>60 ml/min/1.73 sqM) Est GFR (CKD-EPI)NonAf 63 (>60 ml/min/1.73 sqM) Glucose 118 H (74-99) mg/dL Calcium 9.5 (8.4-10.2) mg/dL Total Bilirubin 0.5 (0.2-1.3) mg/dL AST 38 (17-59) U/L ALT 38 (4-49) U/L Alkaline Phosphatase 128 H (38-126) U/L Total Protein 7.0 (6.3-8.2) g/dL Albumin 4.1 (3.5-5.0) g/dL Disposition Clinical Impression: Hemoptysis Disposition[facility] Referrals: None,Stated [Primary Care Provider] - 1-2 days Time of Disposition: 17:33
--- NOTE | 2024-08-03 14:45 | XR ---
EXAMINATION TYPE: XR chest 2V DATE OF EXAM: 08/03/2024 2:34 PM COMPARISON: 05/28/2022 CLINICAL INDICATION: Male, 63 years old with history of Difficulty breathing , TECHNIQUE: XR chest 2V view(s) obtained. FINDINGS: The heart size is normal. The pulmonary vasculature is normal. The lungs are clear. Increased hilar markings are stable IMPRESSION: 1. No acute pulmonary process. [facility], , 08/03/2024 2:43 PM
[2024-08-03 15:00] LABS: Basophils # (A) 0.04 10*3/uL (0.00-0.10); Basophils % (A) 0.6 %; Eosinophils # (A) 0.07 10*3/uL (0.04-0.35); HCT 41.4 % (39.6-50.0); HGB 13.9 g/dL (13.0-17.0); Immature Platelet Fraction 4.9 % (1.1-6.1); Lymphocytes # (A) 1.48 10*3/uL (0.90-5.00); Lymphocytes % (A) 20.8 %; MCH 29.6 pg (27.0-32.0); MCHC 33.6 g/dL (32.0-37.0); MCV 88.1 fL (80.0-97.0); Mean Platelet Volume 11.1 fL (9.5-12.2); Monocytes # (A) 0.41 10*3/uL (0.20-1.00); Monocytes % (A) 5.8 %; Neutrophils # (A) 5.09 10*3/uL (1.80-7.70); Neutrophils % (A) 71.5 %; Platelet Count 143 10*3/uL (140-440); RDW 14.7 % (11.5-14.5); WBC 7.11 10*3/uL (4.50-10.00)
[2024-08-03 15:19] LABS: ALT 38 U/L (4-49); AST 38 U/L (17-59); African American GFR (CKD) 72 (>60 ml/min/1.73 sqM); Albumin 4.1 g/dL (3.5-5.0); Alkaline Phosphatase 128 U/L (38-126); Anion Gap 10 mmol/L; Blood Urea Nitrogen 19 mg/dL (9-20); Calcium 9.5 mg/dL (8.4-10.2); Carbon Dioxide 30 mmol/L (22-30); Chloride 102 mmol/L (98-107); Glucose 118 mg/dL (74-99); Non-African American GFR(CKD) 63 (>60 ml/min/1.73 sqM); Potassium 3.4 mmol/L (3.5-5.1); Sodium 142 mmol/L (137-145); Total Bilirubin 0.5 mg/dL (0.2-1.3)
[2024-08-03 15:31] LABS: Partial Thromboplastin Time 23.9 sec (22.0-30.0); Prothrombin Time 11.1 sec (10.0-12.5)
--- NOTE | 2024-08-03 16:52 | CT ---
EXAMINATION TYPE: CT chest angio for PE DATE OF EXAM: 08/03/2024 COMPARISON: CTA chest October 27, 2016 CLINICAL INDICATION: Male, 63 years old with history of Hemoptysis, COUGHING BLOOD, TECHNIQUE: CTA scan of the thorax is performed with IV Contrast, patient injected with 100ml mL of Isovue 370, p ulmonary embolism protocol. MIP Images are created on CT scanner and reviewed. CT DLP: 1075.6 mGycm. Automated Exposure Control for Dose Reduction was Utilized. FINDINGS: LUNGS: Dependent opacity favors atelectasis bilaterally. No suspicious focal consolidation. Mild unde rlying emphysematous change. Mild additional linear scarring and/or atelectasis. No pleural effusion or pneumothorax seen bilaterally. HEART: Size within normal limits. Coronary stents and RCA distribution. There is additional moderate coronary artery calcification. MEDIASTINUM: Suboptimal study with most dense contrast in SVC. No central acute pulmonary embolism. P rominent lymph nodes in the right hilar and subcarinal region are redemonstrated. They are presumed b enign given similar findings in 2017 CT. No pericardial effusion is seen. Some enhancement of the aor ta without aneurysm or dissection. OTHER: Bridging osteophytes in the thoracic spine are seen. IMPRESSION: 1. Suboptimal study without central acute pulmonary embolism. Peripheral acute pulmonary emboli not e ntirely excluded. 2. No suspicious acute pulmonary process. [facility], , 08/03/2024 4:50 PM
[2024-08-03 17:58] LABS: Basophils # (A) 0.04 10*3/uL (0.00-0.10); Basophils % (A) 0.5 %; Eosinophils # (A) 0.11 10*3/uL (0.04-0.35); Eosinophils % (A) 1.4 %; HCT 42.2 % (39.6-50.0); Lymphocytes # (A) 1.88 10*3/uL (0.90-5.00); Lymphocytes % (A) 23.5 %; MCH 29.4 pg (27.0-32.0); MCHC 33.2 g/dL (32.0-37.0); MCV 88.5 fL (80.0-97.0); Mean Platelet Volume 11.5 fL (9.5-12.2); Monocytes # (A) 0.54 10*3/uL (0.20-1.00); Monocytes % (A) 6.8 %; Neutrophils % (A) 67.5 %; Platelet Count 141 10*3/uL (140-440); RBC 4.77 10*6/uL (4.40-5.60); RDW 14.6 % (11.5-14.5); WBC 7.99 10*3/uL (4.50-10.00)
[2024-08-03] MEDS: SODIUM CHLORIDE 0.9% 1,000 ML IV ONE (18:37)
[2024-08-03] MEDS: ATORVASTATIN 40 MG TAB PO SCH (20:45)
[2024-08-03] MEDS: APIXABAN 5 MG TAB PO SCH (20:45)
[2024-08-03] MEDS: METOPROLOL TARTRATE 50 MG TAB PO SCH (20:45)
[2024-08-04 00:20] LABS: Basophils # (A) 0.03 10*3/uL (0.00-0.10); Basophils % (A) 0.4 %; Eosinophils # (A) 0.12 10*3/uL (0.04-0.35); Eosinophils % (A) 1.7 %; HCT 39.7 % (39.6-50.0); Lymphocytes # (A) 1.67 10*3/uL (0.90-5.00); Lymphocytes % (A) 23.6 %; MCH 29.1 pg (27.0-32.0); MCHC 32.7 g/dL (32.0-37.0); Mean Platelet Volume 11.5 fL (9.5-12.2); Monocytes # (A) 0.52 10*3/uL (0.20-1.00); Monocytes % (A) 7.3 %; Neutrophils # (A) 4.71 10*3/uL (1.80-7.70); Neutrophils % (A) 66.6 %; Platelet Count 147 10*3/uL (140-440); RBC 4.46 10*6/uL (4.40-5.60); RDW 14.8 % (11.5-14.5); WBC 7.08 10*3/uL (4.50-10.00)
[2024-08-04] MEDS: MELATONIN 5 MG TABLET PO SCH (00:57)
[2024-08-04] MEDS ORDERED: BENZONATATE 100 MG CAP PO PRN (01:16)
--- NOTE | 2024-08-04 01:50 | P.CNPUL ---
History of Present Illness Consult date: 08/04/24 Requesting physician: Dave Rider Reason for consult: other (Hemoptysis) Chief complaint: Hemoptysis History of present illness: Patient is a 63-year-old male with past medical history significant for hypertension, hyperlipidemia, asthma, obesity, obstructive sleep apnea with home CPAP, DVT/PE anticoagulated on Eliquis. Starting Wednesday, developed coughing with bright red hemoptysis. Approximately, less than 1 medicine cup in quantity. He has cut his Eliquis down to only once daily. Workup in the emergency department including a chest CT angiogram which did not show any filling defects consistent with central acute pulmonary embolism. No obvious acute parenchymal disease process. CBC: WBC count 7, hemoglobin 13, platelets 147. Coagulation profile with a PT of 11.1, INR 1, APTT 23.9. CMP including a sodium of 142, potassium 3.4, chloride 102, serum bicarb 30, BUN 19, creatinine 1.21, glucose 118. LFTs unremarkable. Patient currently being evaluated emergency department. He is on room air. Does not appear in any respiratory distress. Admits increased work of breathing over the last several weeks. No recent URI infections or treatment for pneumonia. No fevers/chills, sick contacts. Denies any chest pain, heart palpitations, syncopal events, or asymmetric lower extremity edema. No nausea, vomiting, hematemesis. No epistaxis. Started coughing up bright red blood on Wednesday. Coughing frequency and amount sputum is decreased. Now described as dark in color/brown. States he last coughed up blood earlier yesterday morning. Eliquis is since been resumed. He did not bring in his CPAP from home, unfamiliar with his pressure settings. Current vital signs: Temperature 98.4 F, heart rate 60 bpm, blood pressure 106/52 mmHg, nontachypneic, SpO2 98% on room air. Review of Systems Constitutional: Denies chills, Denies fatigue, Denies fever, Denies poor appetite, Denies weight gain, Denies weight loss Ears, nose, mouth and throat: Denies dysphagia, Denies epistaxis, Denies nasal congestion, Denies nasal discharge, Denies sinus pain, Denies sinus pressure, Denies sore throat Cardiovascular: Denies chest pain, Denies lightheadedness, Denies orthopnea, Denies palpitations, Denies paroxysmal nocturnal dyspnea, Denies syncope Respiratory: Reports as per HPI Gastrointestinal: Reports as per HPI Genitourinary: Denies dysuria, Denies hematuria Musculoskeletal: Denies limitation of motion Integumentary: Denies rash, Denies unusual bruising Neurological: Denies seizures, Denies syncope Psychiatric: Denies anxiety, Denies depression Past Medical History Past Medical History: Asthma, Chest Pain / Angina, COPD, Deep Vein Thrombosis (DVT), Hyperlipidemia, Hypertension, Musculoskeletal Disorder, Osteoarthritis (OA), Pulmonary Embolus (PE), Sleep Apnea/CPAP/BIPAP Additional Past Medical History / Comment(s): chronic pain syndrome, 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 MOTHER OF KIDNEY DISEASE AFTER RECEIVING HER NIMO'S DONOR KIDNEY. SHE WAS 75YRS OLD. Father Family Medical History: Cancer, Coronary Artery Disease (CAD), Sleep Apnea /CPAP/BIPAP Additional Family Medical History / Comment(s): MULTIPLE MYELOMA Brother(s) Family Medical History: Pulmonary Embolus (patient had 2 brothers one at and the other one was diagnosed with pulmonary embolism) Sister(s) Family Medical History: No Reported History (patient has 3 sisters no major medical problems.) Daughter(s) Family Medical History: No Reported History (patient has 2 daughters no major medical problems.) Son(s) Family Medical History: No Reported History (patient has one son no major medical problems.) Medications and Allergies Home Medications Medication Instructions Recorded Confirmed Type Ibuprofen 800 mg PO Q8H PRN 06/08/23 08/03/24 History Metoprolol Tartrate [Lopressor] 100 mg PO HS 06/08/23 08/03/24 History Olmesartan/Amlodipin/Hcthiazid 1 tab PO DAILY 06/08/23 08/03/24 History [Olmesartan/Amlodipin/Hcthiazid 40-5-25 MG] Apixaban [Eliquis] 5 mg PO BID 08/03/24 08/03/24 History Atorvastatin [Lipitor] 40 mg PO HS 08/03/24 08/03/24 History Cbd Oil 1 dropper SL DAILY 08/03/24 08/03/24 History Furosemide [Lasix] 40 mg PO DAILY 08/03/24 08/03/24 History Magnesium Drops(Unknown Dose) 1 drop SL DAILY 08/03/24 08/03/24 History Pantoprazole [Protonix] 40 mg PO DAILY 08/03/24 08/03/24 History Potassium Chloride ER [K-Dur 20] 20 meq PO SUWESA 08/03/24 08/03/24 History Vitamin B-12 Drops(Unknown Dose) 1 drop SL DAILY 08/03/24 08/03/24 History Vitamin C Drops(Unknown Dose) 1 drop SL DAILY 08/03/24 08/03/24 History Vitamin D3 Drops(Unknown Dose) 1 drop SL DAILY 08/03/24 08/03/24 History allopurinoL 100 mg PO DAILY 08/03/24 08/03/24 History Benzonatate [Tessalon Perles] 200 mg PO TID PRN #30 cap 08/04/24 Rx Levofloxacin [Levaquin] 500 mg PO DAILY 7 Days #7 tab 08/04/24 Rx predniSONE See Taper PO DAILY #30 tab 08/04/24 Rx Allergies Allergy/AdvReac Type Severity Reaction Status Date / Time tirzepatide [From Ras] AdvReac Nausea & Verified 08/03/24 17:36 Vomiting & Diarrhea tramadol AdvReac Chest Pain Verified 08/03/24 17:36 Physical Exam Vitals: Vital Signs Temp Pulse Resp BP Pulse Ox 08/04/24 00:55 98.4 F 60 17 106/52 97 08/03/24 21:21 97.5 F L 75 17 118/65 98 08/03/24 20:46 78 17 107/59 95 08/03/24 18:39 74 18 116/70 95 08/03/24 17:00 64 15 116/82 96 08/03/24 15:00 80 16 100/58 95 08/03/24 13:45 98.2 F 80 16 132/59 94 L 08/03/24 13:14 97.3 F L 94 20 151/76 96 Intake and Output 08/03/24 08/03/24 08/04/24 14:59 22:59 06:59 Other: Weight 154.221 kg GENERAL EXAM: Alert, 63-year-old male, sitting comfortably on room air, no acute respiratory distress, no coughing. HEAD: Normocephalic and atraumatic EYES: Normal reaction of pupils, equal size. NOSE: Clear with pink turbinates. THROAT: No erythema or exudates. NECK: No masses, no JVD. CHEST: No chest wall deformity. LUNGS: Equal air entry with no crackles, wheeze, rhonchi or dullness. No conversational dyspnea or accessory muscle use.. CVS: S1 and S2 normal with no audible murmur, regular rhythm. No extra heart sounds ABDOMEN: No hepatosplenomegaly, active bowel sounds, no guarding or rigidity. SPINE: No scoliosis or deformity SKIN: No rashes CENTRAL NERVOUS SYSTEM: No focal deficits, tone is normal in all 4 extremities. EXTREMITIES: There is mild bilateral nonpitting lower extremity edema. No clubbing or cyanosis. Peripheral pulses are intact. 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 Chest CT angiogram reviewed, no obvious central pulmonary embolism, no acute parenchymal disease process, no lung nodules or masses. No need for urgent bronchoscopy Eliquis previously restarted Patient did not bring his own CPAP, provide with a hospital CPAP to be used at night Case to be reviewed with Dr. Kee, further recommendations to follow I have personally seen and examined the patient, performed the documentation and the assessment and plan as written. Number of minutes spent on the visit:20 This is a joint evaluation was done along with the nurse practitioner. The patient was seen and evaluated. The patient remains in the emergency d epartment. The patient is coughing of bloody mucus and he has been having the symptoms for the past 24 to 48 hours, the hemoptysis is mild and the amount is obviously less than 10 cc. No fever. No chills. No chest pain. He remains on room air oxygen. He remains on anticoagulation with Eliquis 5 mg p.o. twice daily regarding his previous history of pulmonary embolism and DVT. A CT scan of the chest was done in the emergency department, his CT angiogram that showed no evidence of any pulmonary embolism. No airspace disease. No consolidation. Prominent lymph nodes in the right hilum and subcarinal region is again demonstrated. These are likely benign as lymph nodes are present on the previous CAT scan of the chest back in 2017. The coagulation profile is normal. Platelet count is normal at 147. LFTs are normal. Rest of the electrolytes are all normal. The patient wants to go home. I think it is reasonable. I suggest giving the patient a course of Levaquin 500 for the next 7days and a course of prednisone burst taper. The patient will see me back in the office in 1 to 2 weeks.. If the hemoptysis continues, a bronchoscopy will be indicated at that stage. Will continue to follow. The patient will be discharged home and he was instructed to come back to the hospital if there is any worsening his symptoms of hemoptysis.
[2024-08-04 06:12] VITALS: TEMP 97.8
[2024-08-04] MEDS: POTASSIUM CHLORIDE ER 20 MEQ TAB.ER PO STA (08:28)
[2024-08-04] MEDS: PANTOPRAZOLE 40 MG TABLET PO SCH (08:28)
[2024-08-04] MEDS: allopurinoL 100 MG TAB PO SCH (08:29)
[2024-08-04] MEDS: FUROSEMIDE 40 MG TAB PO SCH (08:29)
[2024-08-04 08:32] VITALS: RESP 20
[2024-08-04 10:53] VITALS: BP 117/64
[2024-08-04 12:18] VITALS: PULSE 68
--- NOTE | 2024-08-04 13:45 | P.HPIM ---
History of Present Illness H&P Date: 08/04/24 Patient is a 63-year-old male with asthma, COPD (no home osygen), hyperlipidemia, hypertension, osteoarthritis, sleep apnea (CPAP use), anxiety, depression, history of DVT and pulmonary embolism (anticoagulated on Eliquis), chronic lower extremity swelling here for evaluation of hemoptysis. Patient reported that on Wednesday, he started to develop a productive cough with bright red blood with associated increased work of breathing in the last several weeks. He says the volume is about less than a medicine cup. His symptoms persisted which led him to seek care. He denied fevers, chills, chest pain, palpitations, nausea, vomiting, hematemesis, bruising, recent travel or sick contacts exposure. Now on evaluation he reported that the blood looks more thick and dark red-brown. On admission: Vitals: Temperature 77.3, MA 94, RR 20, BP 151/76, O2 saturation 96% on room air Labs: WBC 7.1, hemoglobin 13.9, platelet count 1 43,000, sodium 142, potassium 3.4, bicarb 30, BUN 19, creatinine 1.2, glucose 118, calcium 9.5, alk phos 128, AST 38, ALT 38, albumin 4.1. Imaging: Chest x-ray showed no acute pulmonary process. CT angiography showed no acute pulmonary embolism. EKG showed sinus rhythm with a rate of 64 bpm, inverted T waves in leads V1 to V3, no ST-T changes, QTc 424 MS. ED documentation reviewed. Review of systems: Pertinent positives and negatives as discussed in HPI, a complete review of systems was performed and all other systems are negative. Social history: Tobacco: Former smoker. Quit since 2008. Active for 30 years. 1-2 ppd Alcohol: occasional intake Recreational drugs: THC 1-2 joints a night Travel: no recent prolonged travel Occupation: retired Physical examination: Vital signs reviewed General: non toxic, no distress, appears at stated age, on room air Derm: no unusual rashes/lesions, warm Head: atraumatic, normocephalic, symmetric Eyes: EOMI, anicteric sclera, pupils equal round reactive to light ENT: Nose and ears atraumatic Neck: No cervical lymphadenopathy, trachea midline, supple Mouth: no lip lesion, mucus membranes moist Cardiovascular: S1S2 reg, no murmur Lungs: CTA bilateral, no rhonchi, no rales, no accessory muscle use Abdominal: soft, nondistended, nontender to palpation, no guarding Ext: muscle strength 5 out of 5 in all 4 extremities grossly, no gross muscle atrophy, no contractures, positive dorsalis pedis pulse bilateral, b/l lower ext nonpitting edema Neuro: CN II-XI grossly intact, no gross focal neuro deficits Psych: Alert and oriented x 3, appropriate affect and mood Assessment/Plan: 63-year-old male with COPD, WEST, asthma, sleep apnea and former smoker here for evaluation of hemoptysis. Patient is hemodynamically stable and all imaging have been negative. The patient is admitted with an anticipated greater than 2 midnight stay for evaluation of hemoptysis Active: #. Hemoptysis, likely medication induced Patient hemodynamically stable at this time Chest x-ray, chest CTA and EKG showed no significant findings Eliquis restarted-patient did not have any worsening symptoms Pulmonology consulted, recs appreciated #. Hypokalemia likely diuretic induced Potassium at 3.4 Potassium chloride 40 mEq p.o. once Patient on home furosemide 40 mg p.o. and home potassium tabs Chronic Conditions: #. Asthma #. COPD #. Hyperlipidemia #. Hypertension #. Osteoarthritis #. Sleep apnea #. Anxiety #. Depression #. History of DVT and pulmonary embolism (anticoagulated on Eliquis) Resume home atorvastatin 80 mg daily, Protonix 40 mg daily, allopurinol 100 mg daily, Lopressor 100 mg daily DVT ppx: Eliquis 5 mg p.o. twice daily CODE STATUS: Full Discussed with: Patient Anticipated discharge place: Home Ruth Corbett MD PGY-1 Internal Medicine Dictation was produced using [employer]oken dictation software. please excuse any grammatical, word or spelling errors. Past Medical History Past Medical History: Asthma, Chest Pain / Angina, COPD, Deep Vein Thrombosis (DVT), Hyperlipidemia, Hypertension, Musculoskeletal Disorder, Osteoarthritis (OA), Pulmonary Embolus (PE), Sleep Apnea/CPAP/BIPAP Additional Past Medical History / Comment(s): chronic pain syndrome, degenerative disc disease of the lumbar spine, bilateral lower extremity edema, borderline DM History of Any Multi-Drug Resistant Organisms: None Reported Past Surgical History: Adenoidectomy, Orthopedic Surgery, Tonsillectomy Additional Past Surgical History / Comment(s): LT LEG SURGERY Past Anesthesia/Blood Transfusion Reactions: No Reported Reaction Past Psychological History: Anxiety, Depression Smoking Status: Former smoker Past Alcohol Use History: Rare Past Drug Use History: Marijuana - Past Family History Mother Family Medical History: Cancer Additional Family Medical History / Comment(s): LUNG CANCER. MOTHER OF KIDNEY DISEASE AFTER RECEIVING HER NIMO'S DONOR KIDNEY. SHE WAS 75YRS OLD. Father Family Medical History: Cancer, Coronary Artery Disease (CAD), Sleep Apnea/CPAP/BIPAP Additional Family Medical History / Comment(s): MULTIPLE MYELOMA Brother(s) Family Medical History: Pulmonary Embolus (patient had 2 brothers one at and the other one was diagnosed with pulmonary embolism) Sister(s) Family Medical History: No Reported History (patient has 3 sisters no major medical problems.) Daughter(s) Family Medical History: No Reported History (patient has 2 daughters no major medical problems.) Son(s) Family Medical History: No Reported History (patient has one son no major medical problems.) Medications and Allergies Home Medications Medication Instructions Recorded Confirmed Type Ibuprofen 800 mg PO Q8H PRN 06/08/23 08/03/24 History Metoprolol Tartrate [Lopressor] 100 mg PO HS 06/08/23 08/03/24 History Olmesartan/Amlodipin/Hcthiazid 1 tab PO DAILY 06/08/23 08/03/24 History [Olmesartan/Amlodipin/Hcthiazid 40-5-25 MG] Apixaban [Eliquis] 5 mg PO BID 08/03/24 08/03/24 History Atorvastatin [Lipitor] 40 mg PO HS 08/03/24 08/03/24 History Cbd Oil 1 dropper SL DAILY 08/03/24 08/03/24 History Furosemide [Lasix] 40 mg PO DAILY 08/03/24 08/03/24 History Magnesium Drops(Unknown Dose) 1 drop SL DAILY 08/03/24 08/03/24 History Pantoprazole [Protonix] 40 mg PO DAILY 08/03/24 08/03/24 History Potassium Chloride ER [K-Dur 20] 20 meq PO SUWESA 08/03/24 08/03/24 History Vitamin B-12 Drops(Unknown Dose) 1 drop SL DAILY 08/03/24 08/03/24 History Vitamin C Drops(Unknown Dose) 1 drop SL DAILY 08/03/24 08/03/24 History Vitamin D3 Drops(Unknown Dose) 1 drop SL DAILY 08/03/24 08/03/24 History allopurinoL 100 mg PO DAILY 08/03/24 08/03/24 History Benzonatate [Tessalon Perles] 200 mg PO TID PRN #30 cap 08/04/24 Rx Levofloxacin [Levaquin] 500 mg PO DAILY 7 Days #7 tab 08/04/24 Rx predniSONE See Taper PO DAILY #30 tab 08/04/24 Rx Allergies Allergy/AdvReac Type Severity Reaction Status Date / Time tirzepatide [From [facility]] AdvReac Nausea & Verified 08/03/24 17:36 Vomiting & Diarrhea tramadol AdvReac Chest Pain Verified 08/03/24 17:36 Physical Exam Vitals: Vital Signs Temp Pulse Resp BP Pulse Ox 08/04/24 06:10 97.8 F 65 17 122/67 96 08/04/24 04:07 97 08/04/24 00:55 98.4 F 60 17 106/52 97 08/03/24 21:21 97.5 F L 75 17 118/65 98 08/03/24 20:46 78 17 107/59 95 08/03/24 18:39 74 18 116/70 95 08/03/24 17:00 64 15 116/82 96 08/03/24 15:00 80 16 100/58 95 08/03/24 13:45 98.2 F 80 16 132/59 94 L 08/03/24 13:14 97.3 F L 94 20 151/76 96 Results CBC & Chem 7: 08/03/24 23:28 08/03/24 14:45 Labs: Abnormal Lab Results - Last 24 Hours (Table) 08/03/24 Range/Units 14:45 Potassium 3.4 L (3.5-5.1) mmol/L Glucose 118 H (74-99) mg/dL Alkaline Phosphatase 128 H (38-126) U/L
--- NOTE | 2024-08-04 16:40 | P.DS ---
Providers Date of admission: 08/03/24 17:34 Attending physician: Cynthia Tabares Consults: 08/03/24 17:33 Consult Physician Urgent Consulting Provider: Yara Kee Consult Reason/Comments: Hemoptysis Do you want consulting provider notified?: Yes Primary care physician: Stated None Hospital Course: Hospital Course: Patient is a 63-year-old male with asthma, COPD (no home osygen), hyperlipidemia, hypertension, osteoarthritis, sleep apnea (CPAP use), anxiety, depression, history of DVT and pulmonary embolism (anticoagulated on Eliquis), chronic lower extremity swelling here for evaluation of hemoptysis. Patient reported that on Wednesday, he started to develop a productive cough with bright red blood with associated increased work of breathing in the last several weeks. He says the volume is about less than a medicine cup. His symptoms persisted which led him to seek care. He denied fevers, chills, chest pain, palpitations, nausea, vomiting, hematemesis, bruising, recent travel or sick contacts exposure. Now on evaluation he reported that the blood looks more thick and dark red-brown. On admission: Vitals: Temperature 77.3, RI 94, RR 20, BP 151/76, O2 saturation 96% on room air Labs: WBC 7.1, hemoglobin 13.9, platelet count 1 43,000, sodium 142, potassium 3.4, bicarb 30, BUN 19, creatinine 1.2, glucose 118, calcium 9.5, alk phos 128, AST 38, ALT 38, albumin 4.1. Imaging: Chest x-ray showed no acute pulmonary process. CT angiography showed no acute pulmonary embolism. EKG showed sinus rhythm with a rate of 64 bpm, inverted T waves in leads V1 to V3, no ST-T changes, QTc 424 MS. Patient was admitted for an evaluation of hemoptysis and repletion of hypokalemia. Given 40 mEq potassium chloride p.o. Patient remained hemodynamically stable and did not require any oxygen supplementation overnight. No new complications occurred. Pulmonology cleared patient for discharge and placed on Levaquin 500 mg daily for 7 days and prednisone burst taper. Will consider bronchoscopy if symptoms did not improve after taking antibiotics and the prednisone. Will follow-up with PCP and pulmonology on outpatient basis. Final Diagnosis: #. Hemoptysis, stable, medication versus infectious cause #. Hypokalemia likely diuretic induced, stable #. Asthma #. COPD #. Hyperlipidemia #. Hypertension #. Osteoarthritis #. Sleep apnea (with CPAP use) #. Anxiety #. Depression #. History of DVT and pulmonary embolism (anticoagulated on Eliquis) Physical examination: Vital signs reviewed General: non toxic, no distress Derm: no unusual rashes/lesions, warm Head: atraumatic, normocephalic, symmetric Eyes: EOMI, anicteric sclera, pupils equal round reactive to light ENT: Nose and ears atraumatic Neck: No cervical lymphadenopathy, trachea midline, supple Mouth: no lip lesion, mucus membranes moist Cardiovascular: S1S2 reg, no murmur Lungs: CTA bilateral, no rhonchi, no rales, no accessory muscle use Abdominal: soft, nondistended, nontender to palpation, no guarding Ext: muscle strength 5 out of 5 in all 4 extremities grossly, no gross muscle atrophy, no contractures, positive dorsalis pedis pulse bilateral, b/l lower ext nonpitting edema Neuro: CN II-XI grossly intact, no gross focal neuro deficits Psych: Alert, oriented, appropriate affect and mood Patient Condition at Discharge: Stable Plan - Discharge Summary New Discharge Prescriptions: New predniSONE See Taper PO DAILY #30 tab Benzonatate [Tessalon Perles] 200 mg PO TID PRN #30 cap PRN Reason: Cough Levofloxacin [Levaquin] 500 mg PO DAILY 7 Days #7 tab Continue Vitamin B-12 Drops(Unknown Dose) 1 drop SL DAILY Furosemide [Lasix] 40 mg PO DAILY allopurinoL 100 mg PO DAILY Pantoprazole [Protonix] 40 mg PO DAILY Vitamin D3 Drops(Unknown Dose) 1 drop SL DAILY Apixaban [Eliquis] 5 mg PO BID Ibuprofen 800 mg PO Q8H PRN PRN Reason: Pain Olmesartan/Amlodipin/Hcthiazid [Olmesartan/Amlodipin/Hcthiazid 40-5-25 MG] 1 tab PO DAILY Metoprolol Tartrate [Lopressor] 100 mg PO HS Potassium Chloride ER [K-Dur 20] 20 meq PO SUWESA Atorvastatin [Lipitor] 40 mg PO HS Vitamin C Drops(Unknown Dose) 1 drop SL DAILY Magnesium Drops(Unknown Dose) 1 drop SL DAILY Cbd Oil 1 dropper SL DAILY Discharge Medication List Ibuprofen 800 mg PO Q8H PRN 06/08/23 [History] Metoprolol Tartrate [Lopressor] 100 mg PO HS 06/08/23 [History] Olmesartan/Amlodipin/Hcthiazid [Olmesartan/Amlodipin/Hcthiazid 40-5-25 MG] 1 tab PO DAILY 06/08/23 [History] Apixaban [Eliquis] 5 mg PO BID 08/03/24 [History] Atorvastatin [Lipitor] 40 mg PO HS 08/03/24 [History] Cbd Oil 1 dropper SL DAILY 08/03/24 [History] Furosemide [Lasix] 40 mg PO DAILY 08/03/24 [History] Magnesium Drops(Unknown Dose) 1 drop SL DAILY 08/03/24 [History] Pantoprazole [Protonix] 40 mg PO DAILY 08/03/24 [History] Potassium Chloride ER [K-Dur 20] 20 meq PO SUWESA 08/03/24 [History] Vitamin B-12 Drops(Unknown Dose) 1 drop SL DAILY 08/03/24 [History] Vitamin C Drops(Unknown Dose) 1 drop SL DAILY 08/03/24 [History] Vitamin D3 Drops(Unknown Dose) 1 drop SL DAILY 08/03/24 [History] allopurinoL 100 mg PO DAILY 08/03/24 [History] Benzonatate [Tessalon Perles] 200 mg PO TID PRN #30 cap 08/04/24 [Rx] Levofloxacin [Levaquin] 500 mg PO DAILY 7 Days #7 tab 08/04/24 [Rx] predniSONE See Taper PO DAILY #30 tab 08/04/24 [Rx] Follow up Appointment(s)/Referral(s): Ruth Corbett MD [RESIDENT] - 1 Week Yara Kee MD [STAFF PHYSICIAN] - 1 Week Patient Instructions/Handouts: Coughing Up Blood (Hemoptysis) (ED) Discharge Disposition: HOME SELF-CARE
[2024-08-05] MEDS ORDERED: POTASSIUM CHLORIDE ER 20 MEQ TAB.ER PO SCH (17:53)
== END 2024-08-04 15:01 | disposition home or self-care (01) ==
LOC: EC 13:11 → 6NMEDSUR 17:34
PROVIDERS: ADMIT Hospitalist; ATTEND Hospitalist
DX: R04.2 Hemoptysis (principal); E87.6 Hypokalemia; I10 Essential (primary) hypertension; J44.89 Other specified chronic obstructive pulmonary disease; G47.33 Obstructive sleep apnea (adult) (pediatric); E78.5 Hyperlipidemia, unspecified; E66.01 Morbid (severe) obesity due to excess calories; Z68.42 Body mass index [BMI] 45.0-49.9, adult; M19.90 Unspecified osteoarthritis, unspecified site; R22.43 Localized swelling, mass and lump, lower limb, bilateral; F41.9 Anxiety disorder, unspecified; F32.A Depression, unspecified; Z79.01 Long term (current) use of anticoagulants; Z79.51 Long term (current) use of inhaled steroids; Z79.899 Other long term (current) drug therapy; Z88.5 Allergy status to narcotic agent; Z88.8 Allergy status to other drugs, medicaments and biological substances; Z87.891 Personal history of nicotine dependence; Z86.711 Personal history of pulmonary embolism; Z86.718 Personal history of other venous thrombosis and embolism; Z86.0100 Personal history of colon polyps, unspecified
CPT/HCPCS: 99285; 36415; 93005; 80053; 85025; 85610; 85730; 71046; 71275; G0378 ×2; Q9967